=== PATIENT | female | born 1950 | race Caucasian/White ===

== ENCOUNTER 2024-08-14 12:00 | Inpatient (IN) | payer MEDICARE, MEDICAID, SELFPAY ==
--- NOTE | ~2024-08-14 | XR_ITS ---
EXAMINATION: XR CHEST CLINICAL INFORMATION: altered COMPARISON: None available. TECHNIQUE: 2 views of the chest were obtained. FINDINGS: Limited lateral projection due to overlapping of the upper extremities. Prominence of the interstitial markings. No consolidation, pleural effusion or pneumothorax. Cardiomediastinal silhouette demonstrates a prominent tortuous thoracic aorta. Multilevel thoracic spondylosis. Osteopenia versus osteoporosis. Degenerative changes in the shoulders. XR/XR chest 2V IMPRESSION: Consider mild interstitial edema in the correct clinical settings versus chronic interstitial lung disease. Electronically signed by: Hermann Sierra MD 08/14/2024 01:19 PM [facility]
--- NOTE | ~2024-08-14 | CT_ITS ---
EXAMINATION: CT HEAD WITHOUT CONTRAST CLINICAL INFORMATION: altered mental status COMPARISON: None available. TECHNIQUE: Contiguous axial imaging was performed from the skull base to vertex without intravenous administration of contrast. This CT examination was performed using dose optimization techniques as appropriate, variously including the following: *Automated exposure control *Adjustment of mA and/or kV according to patient size (this includes techniques or standardized protocols for targeted exams where dose is matched to indication/reason for exam; i.e. extremities or head) *Use of iterative reconstruction technique DLP: 599 mGy-cm FINDINGS: Limited by patient's motion artifact. No acute intracranial hemorrhage. Bilateral multifocal patchy and confluent deep periventricular white matter hypodensities involving centrum semiovale and adkins radiata. Prominence of the extra-axial CSF spaces, cerebral sulci and ventricles. No mass effect, midline shift, hydrocephalus or herniation. [place]-white matter differentiation is normal. Sellar/suprasellar region demonstrated no gross masses or hemorrhage. Craniocervical junction is intact and normal. Calcified plaques in the cavernous supraclinoid segments both ICAs and V4 segment left vertebral artery. Bony calvarium is intact. No air-fluid levels in the included paranasal sinuses. Tympanic cavities and mastoid air cells are aerated. Pneumatized pterygoid recesses, bilaterally. CT/CT head/brain wo IV con IMPRESSION: No acute intracranial hemorrhage. Small vessel occlusive disease. Superimposed acute nonhemorrhagic ischemia/stroke cannot be excluded. Global cerebral atrophy. Electronically signed by: Hermann Seirra MD 08/14/2024 03:10 PM [facility]
[2024-08-14 12:13] VITALS: BP 140/80; PULSE 70; RESP 18; O2SAT 100; BMI 18.6
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
--- NOTE | 2024-08-14 12:40 | ECG_ITS ---
Test Reason : ams Blood Pressure : / mmHG Vent. Rate : 061 BPM Atrial Rate : 072 BPM P-R Int : 000 ms QRS Dur : 086 ms QT Int : 444 ms P-R-T Axes : 000 001 033 degrees QTc Int : 446 ms Artifact in tracing Undetermined rhythm Minimal voltage criteria for LVH, may be normal variant ( R in aVL ) Nonspecific ST and T wave abnormality Abnormal ECG No previous ECGs available Referred By: Erlinda Alarcon Electronically Signed By:ZEUS LO
--- NOTE | 2024-08-14 13:36 | PC.NURSE ---
with lots of coaxing patient is cooperating with techs for workup. banded with elopment band
[2024-08-14 14:02] LABS: MANUAL DIFF FLAG NO
[2024-08-14 14:03] LABS: Basophils Percent Auto 0.6 % (0-2); Eosinophils Absolute Auto 0.2 X10*3/uL (0.0-0.4); Eosinophils Percent Auto 3.4 % (0-4); Hematocrit 33.4 % (37.0-47.0); Imm Gran Abs Auto 0.01 X10*3/uL (0.00-0.03); Imm Gran Pct Auto 0.2 % (0.0-0.4); Lymphocytes Absolute Auto 1.8 X10*3/uL (1.2-4.9); Lymphocytes Percent Auto 38.5 % (20-40); Mean Corpuscular HGB Conc 35.9 g/dl (31.0-35.0); Mean Corpuscular Hemoglobin 30.9 pg (27.0-33.0); Mean Corpuscular Volume 86.1 fL (80.0-98.0); Mean Platelet Volume 10.9 fL (9.4-12.3); Monocytes Absolute Auto 0.5 X10*3/uL (0.1-1.2); Monocytes Percent Auto 11.3 % (2-11); Neutrophils Absolute Auto 2.2 x10*3/uL (2.0-8.3); Platelet Count 176 X10*3/uL (160-400); Red Blood Count 3.88 X10*6/uL (4.20-5.50); Red Cell Distribution Width 13.8 % (11.0-16.0); White Blood Count 4.7 X10*3/uL (4.8-10.8)
[2024-08-14 14:17] LABS: Appearance Urine Clear; Color Urine Yellow; Glucose Urine UA Negative (Negative); Leukocyte Esterase Urine Negative (Negative); Nitrite Urine Negative (Negative); Specific Gravity - Urine 1.015 (1.005-1.025); Urine Blood Negative (Negative); Urine Ketones Negative (Negative); Urine Protein Negative (Neg-Trace)
[2024-08-14 14:18] LABS: Ammonia 21 umol/L (13-55)
[2024-08-14 14:28] LABS: Alanine Aminotransferase 17 U/L (0-31); Albumin Level 3.8 g/dL (3.5-5.0); Alkaline Phosphatase 83 U/L (39-117); Anion Gap 9 (12-20); Aspartate Amino Transferase 30 U/L (5-31); Bilirubin Total 0.7 mg/dL (0.0-1.0); Blood Urea Nitrogen 22 mg/dL (9-16); Calcium 9.4 mg/dL (8.4-10.2); Carbon Dioxide 27 mmol/L (22-29); Chloride 107 mmol/L (96-108); Creatinine Clr Calc Pharmacy 68.3; Estimated Glomerular Filt Rate > 60; Glucose Random 88 mg/dL (60-115); Lipase 21 U/L (8-78); Magnesium 1.9 mg/dL (1.6-2.6); Potassium 3.8 mmol/L (3.3-5.1); Sodium 139 mmol/L (135-145); Total Protein 6.9 g/dL (6.5-8.0)
[2024-08-14 14:31] LABS: Amphetamine Screen Urine Not Detected (Not Detect); Barbiturates, Urine Not Detected (Not Detect); Benzodiazepines Screen Urine Not Detected (Not Detect); Buprenorphine Scr Not Detected (Not Detect); Cannabinoid Screen Urine Not Detected (Not Detect); Cocaine Screen Urine Not Detected (Not Detect); Fentanyl, urine Not Detected (Not Detect); Methadone Screen, Urine Not Detected (Not Detect); Opiate Screen Urine Not Detected (Not Detect); Oxycodone Screen Urine Not Detected (Not Detect); Phencyclidine Screen Urine Not Detected (Not Detect)
[2024-08-14 14:33] VITALS: BP 138/89; PULSE 67; RESP 16; TEMP 36; O2SAT 100
[2024-08-14 14:42] LABS: Influenza A PCR NEGATIVE (Negative); Influenza B PCR NEGATIVE (Negative); Resp Syncy Virus RNA Qual PCR NEGATIVE (Negative); SARS COV2 PCR INHOUSE NEGATIVE (Negative)
[2024-08-14 14:52] LABS: TSH reflex Free T4 2.36 uIU/mL (0.32-4.0)
--- NOTE | 2024-08-14 15:29 | PC.NURSE ---
Pt resting quietly in [address] bed. Skin PWD. NAD.
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
[2024-08-14 16:21] LABS: Troponin-I High Sensitivity 3.6 ng/L (<3.5-17.0)
[2024-08-14 17:06] VITALS: BP 146/77; PULSE 71; RESP 18; TEMP 36.6; O2SAT 100
[2024-08-14 20:22] VITALS: BP 159/81; PULSE 68; RESP 18; TEMP 36.2; O2SAT 100
--- NOTE | 2024-08-14 21:14 | PC.NURSE ---
med rec done with med list provided by [facility]. Yaz RICH aware.
[2024-08-14] MEDS: Melatonin 3 MG TABLET PO (21:54)
[2024-08-14] MEDS: QUEtiapine Fumarate 50 MG TABLET 150 MG PO (21:54)
[2024-08-14] MEDS: hydrOXYzine HCL 25 MG TABLET PO (21:54)
[2024-08-14] MEDS: Apixaban 5 MG TABLET PO (21:54)
--- NOTE | 2024-08-14 22:19 | PHA.MEDREC ---
Pharmacy Consult ? Medication Reconciliation Pharmacy has reviewed the medication reconciliation done by nursing staff and also added in medications from the list from [facility].
[2024-08-14] MEDS: Doxycycline Monohydrate 100 MG CAPSULE PO (22:33)
[2024-08-14] MEDS: cefuroxime axetiL 500 MG TABLET PO (22:33)
[2024-08-14] MEDS: Divalproex Sodium Sprinkles 125 MG CAP.DR.SPR 625 MG PO (22:33)
--- NOTE | 2024-08-14 23:07 | PC.NURSE ---
pt brief removed, elyssa care provided, bed linen changed, warm blankets given and pt repositioned. skin intact. pt now resting comfortably in [address]. resp even and unlabored.
--- NOTE | 2024-08-15 00:20 | PC.NURSE ---
pt became agitated, trying to get out of bed. repositioned back to bed, attempt to give PRN however pt spit it back out. currently sleeping, resp even and unlabored.
[2024-08-15] MEDS: Divalproex Sodium Sprinkles 125 MG CAP.DR.SPR 625 MG PO (08:34)
[2024-08-15] MEDS: Losartan Potassium 50 MG TABLET PO (08:34)
[2024-08-15] MEDS: Folic Acid 1 MG TABLET PO (08:34)
[2024-08-15] MEDS: Omeprazole 20 MG CAPSULE.DR PO (08:34)
[2024-08-15] MEDS: QUEtiapine Fumarate 50 MG TABLET 150 MG PO ×2 (08:34→21:22)
[2024-08-15] MEDS: Doxycycline Monohydrate 100 MG CAPSULE PO ×2 (08:34→21:25)
[2024-08-15] MEDS: Calcium Oyster Shell Elemental 500 MG TABLET PO (08:35)
[2024-08-15] MEDS: Chlorhexidine Gluc Oral Rinse 15 ML MOUTHWASH BUCCAL ×2 (08:35→21:22)
[2024-08-15] MEDS: dilTIAZem HCL CD 120 MG CAP.ER.DEG PO (08:35)
[2024-08-15] MEDS: cefuroxime axetiL 500 MG TABLET PO ×2 (08:35→21:22)
[2024-08-15] MEDS: Apixaban 5 MG TABLET PO ×2 (08:35→21:22)
[2024-08-15] MEDS: hydrOXYzine HCL 25 MG TABLET PO (08:35)
[2024-08-15] MEDS: Thiamine HCL 100 MG TABLET PO (08:35)
--- NOTE | 2024-08-15 09:26 | P.CNPS_ITS ---
History of Present Illness Date of Service: 08/15/2024 Chief Complaint: SEC 12,INCR PSYCHOSIS FROM SNF PER EMS Requesting physician: Erlinda Alarcon Discussed with referring provider: Yes Sources of Information: patient interviewed, chart reviewed and crisis/core team assessment reviewed Additional Sources of Information: guardian Kaylen Diopr [phone] [facility] Narrative: Ms. Guan is a 74 year-old woman with hx of schizophrenia and dementia who resides at [facility]. She has been there for about 4 months. [place] to going there she [place] [facility] [place] [facility] and medical records are limited. [facility], reports that pt for the past 3 weeks appears more confused.Initial report also includes difficulty ambulating but also it was reported that she was chasing staff with plastic knife. In the ED, pt presents as somewhat anxious. She is not oriented to place, month, year, nor situation. She is not able to tell this internal communications writer where she lives. She thinks we are in [place] and she is waiting to go see her friend Chucky. She thinks she knows this internal communications writer and insists that I also know Sheila stating He is down the road. She does not appear as suspicious at this time. Her speech noted to have significant confabulation. She denies SI/HI. She also denies depression and has no recollection as to why she is here. She is not able to always tell this is a hospital setting. When asked about how long she has been here she states oh that's ancient history. She denies any physical concerns. Collateral information from guardian Kaylen Castillo who reports she is new to pt, and was given limited information on her. Kaylen does report that as far as she is aware pt has been oriented only to self for a very long time and not new. This internal communications writer also reviewed records from [facility] from earlier this month, pt also presented as oriented only to self. Diagnostics Vital Signs (24Hr): Vital Signs - 24 hr 08/14/24 12:13 08/14/24 14:33 08/14/24 17:06 Temperature 96.8 F 97.8 F Pulse Rate 70 67 71 Respiratory Rate 18 16 18 Blood Pressure 140/80 H 138/89 146/77 H Pulse Oximetry 100 100 100 Oxygen Delivery Method Room Air Room Air Room Air 08/14/24 20:22 Temperature 97.2 F Pulse Rate 68 Respiratory Rate 18 Blood Pressure 159/81 H Pulse Oximetry 100 Oxygen Delivery Method Room Air BMI result Body Mass Index 18.6 Labs 08/14/24 13:57 08/14/24 13:58 Labs: Laboratory Results - last 48 hr 08/14/24 08/14/24 08/14/24 13:57 13:58 14:01 WBC 4.7 L RBC 3.88 L Hgb 12.0 Hct 33.4 L MCV 86.1 MCH 30.9 MCHC 35.9 H RDW 13.8 Plt Count 176 MPV 10.9 Immature Gran % (Auto) 0.2 Neut % (Auto) 46.0 Lymph % (Auto) 38.5 Douglas % (Auto) 11.3 H Eos % (Auto) 3.4 Baso % (Auto) 0.6 Lymph # (Auto) 1.8 Douglas # (Auto) 0.5 Eos # (Auto) 0.2 Baso # (Auto) 0.0 Abs Immat Gran (auto) 0.01 Absolute Neuts (auto) 2.2 Absolute Nucleated RBC 0.000 Nucleated RBC % (auto) 0.0 Sodium 139 Potassium 3.8 Chloride 107 Carbon Dioxide 27 Anion Gap 9 L BUN 22 H Creatinine 0.56 Estim Creat Clear Calc 68.3 Estimated GFR > 60 Random Glucose 88 Calcium 9.4 Magnesium 1.9 Total Bilirubin 0.7 AST 30 ALT 17 Alkaline Phosphatase 83 Ammonia 21 Total Creatine Kinase 63 Troponin I High Sens 3.6 Total Protein 6.9 Albumin 3.8 Lipase 21 TSH 2.36 Urine Color Yellow Urine Appearance Clear Urine pH 6.0 Ur Specific [place] 1.015 Urine Protein Negative Urine Glucose (UA) Negative Urine Ketones Negative Urine Blood Negative Urine Nitrite Negative Ur Leukocyte Esterase Negative Urine Opiates Screen Not Detected Ur Buprenorphine Scrn Not Detected Ur Oxycodone Screen Not Detected Urine Methadone Screen Not Detected Urine Fentanyl Screen Not Detected Ur Barbiturates Screen Not Detected Valproic Acid Ur Phencyclidine Scrn Not Detected Ur Amphetamines Screen Not Detected U Benzodiazepines Scrn Not Detected Urine Cocaine Screen Not Detected U Marijuana (THC) Screen Not Detected Influenza Type A (PCR) NEGATIVE Influenza Type B (PCR) NEGATIVE RSV RNA Qual (PCR) NEGATIVE SARS-CoV-2 RNA (RT-PCR) NEGATIVE 08/14/24 16:40 WBC RBC Hgb Hct MCV MCH MCHC RDW Plt Count MPV Immature Gran % (Auto) Neut % (Auto) Lymph % (Auto) Douglas % (Auto) Eos % (Auto) Baso % (Auto) Lymph # (Auto) Douglas # (Auto) Eos # (Auto) Baso # (Auto) Abs Immat Gran (auto) Absolute Neuts (auto) Absolute Nucleated RBC Nucleated RBC % (auto) Sodium Potassium Chloride Carbon Dioxide Anion Gap BUN Creatinine Estim Creat Clear Calc Estimated GFR Random Glucose Calcium Magnesium Total Bilirubin AST ALT Alkaline Phosphatase Ammonia Total Creatine Kinase Troponin I High Sens Total Protein Albumin Lipase TSH Urine Color Urine Appearance Urine pH Ur Specific [place] Urine Protein Urine Glucose (UA) Urine Ketones Urine Blood Urine Nitrite Ur Leukocyte Esterase Urine Opiates Screen Ur Buprenorphine Scrn Ur Oxycodone Screen Urine Methadone Screen Urine Fentanyl Screen Ur Barbiturates Screen Valproic Acid 80.0 Ur Phencyclidine Scrn Ur Amphetamines Screen U Benzodiazepines Scrn Urine Cocaine Screen U Marijuana (THC) Screen Influenza Type A (PCR) Influenza Type B (PCR) RSV RNA Qual (PCR) SARS-CoV-2 RNA (RT-PCR) Imaging Radiology Impressions: ITS Impressions Chest X-Ray 08/14/24 12:39 IMPRESSION: Consider mild interstitial edema in the correct clinical settings versus chronic interstitial lung disease. Electronically signed by: Hermann Sierra MD 08/14/2024 01:19 PM EST RP Head CT 08/14/24 13:04 IMPRESSION: No acute intracranial hemorrhage. Small vessel occlusive disease. Superimposed acute nonhemorrhagic ischemia/stroke cannot be excluded. Global cerebral atrophy. Electronically signed by: Hermann Sierra MD 08/14/2024 03:10 PM EST RP Mental Status Exam Mental Status Exam Narrative: Appearance: thin, fair hygiene, in NAD Behavior: cooperative Psychomotor: no agitation nor retardation noted Speech: clear, normal rate/rhythm/volume, spontaneous TP: derailment, confabulation TC: looking for Sheila Mood: good Affect: congruent SI: denies HI: denies VH/AH: no overt signs at the moment, but confabulation present Delusions: no overt delusional content but confabulating Insight/judgment: impaired x 2 . Memory/cog: alert, not oriented to place, year, month, nor situation. severely impaired. Medications Medications Current Medications Apixaban (Apixaban 5 Mg Tablet) 5 mg PO BID [facility] Last Admin: 08/15/24 08:35 Dose: 5 mg Bisacodyl (Bisacodyl 10 Mg Supp.Rect) 10 mg MD DAILY PRN PRN Reason: Constipation Calcium Carbonate (Calcium Oyster Shell Elemental 500 Mg Tablet) 500 mg PO DAILY [facility] Last Admin: 08/15/24 08:35 Dose: 500 mg Cefuroxime Axetil (Cefuroxime Axetil 500 Mg Tablet) 500 mg PO BID [facility] Last Admin: 08/15/24 08:35 Dose: 500 mg Chlorhexidine Gluconate (Chlorhexidine Gluc Oral Rinse 15 Ml Mouthwash) 15 ml BUCCAL BID [facility] Last Admin: 08/15/24 08:35 Dose: 15 ml Diltiazem HCl (Diltiazem Hcl Cd 120 Mg Cap.Er.Deg) 120 mg PO DAILY [facility]; Protocol Last Admin: 08/15/24 08:35 Dose: 120 mg Divalproex Sodium (Divalproex Sodium Sprinkles 125 Mg Cap.Dr.Spr) 625 mg PO BID [facility] Last Admin: 08/15/24 08:34 Dose: 625 mg Doxycycline Monohydrate (Doxycycline Monohydrate 100 Mg Capsule) 100 mg PO BID [facility] Last Admin: 08/15/24 08:34 Dose: 100 mg Ergocalciferol (Ergocalciferol (Vitamin D2) 1,250 Mcg Capsule) 1,250 mcg PO TH [facility] Folic Acid (Folic Acid 1 Mg Tablet) 1 mg PO DAILY [facility] Last Admin: 08/15/24 08:34 Dose: 1 mg Hydroxyzine HCl (Hydroxyzine Hcl 25 Mg Tablet) 25 mg PO TID [facility] Last Admin: 08/15/24 08:35 Dose: 25 mg Losartan Potassium (Losartan Potassium 50 Mg Tablet) 50 mg PO DAILY [facility]; Protocol Last Admin: 08/15/24 08:34 Dose: 50 mg Magnesium Hydroxide (Milk Of Magnesia 30 Ml Oral.Susp) 30 ml PO DAILY PRN PRN Reason: Constipation Melatonin (Melatonin 3 Mg Tablet) 3 mg PO BEDTIME [facility] Last Admin: 08/14/24 21:54 Dose: 3 mg Omeprazole (Omeprazole 20 Mg Capsule.Dr) 20 mg PO DAILY [facility] Last Admin: 08/15/24 08:34 Dose: 20 mg Ondansetron HCl (Ondansetron Odt 4 Mg Tab.Rapdis) 4 mg TRANSLINGU Q6H PRN PRN Reason: Nausea Quetiapine Fumarate (Quetiapine Fumarate 25 Mg Tablet) 25 mg PO Q8H PRN PRN Reason: Agitation Quetiapine Fumarate (Quetiapine Fumarate 50 Mg Tablet) 150 mg PO BID [facility] Last Admin: 08/15/24 08:34 Dose: 150 mg Sodium Biphosphate/Sodium Phosphate (Sodium Phosphate,Douglas-Dibasic 133 Ml Enema) 118 ml MD DAILY PRN PRN Reason: Constipation Thiamine HCl (Thiamine Hcl 100 Mg Tablet) 100 mg PO DAILY [facility] Last Admin: 08/15/24 08:35 Dose: 100 mg Allergies Allergies Allergy/AdvReac Type Severity Reaction Status Date / Time cat dander Allergy Unknown Verified 08/14/24 12:19 erythromycin base Allergy Unknown Verified 08/14/24 12:19 Penicillins Allergy Unknown Verified 08/14/24 12:19 pollen extracts Allergy Unknown Verified 08/14/24 12:19 prednisone Allergy Unknown Verified 08/14/24 12:19 vancomycin Allergy Unknown Verified 08/14/24 12:19 Assessment & Plan Assessment & Plan (1) Major 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 Cruz is a 74 year-old woman who was brought from [facility] after running after staff with plastic knife and increased confusion for apparently 3 weeks. It does appear that pt has been oriented mostly to self for longer than 3 weeks. Initially thought of a more acute change in mentation and possible delirium, but it does seem this may be underlying dementia. It does seem to be of alzheimer's type. She has not been combative or aggressive here in the hospital. She apparently has hx of schizophrenia and multiple psych admission throughout her life but information on here is very limited as current caregivers including guardian does not know her well and was not given much information on her. Guardian did mention that she had been at [facility] several times, eventually it would be very helpful to get their medical records. Discussed adding risperidone 1mg po BID- if in fact underlying psychosis, either related to dementia or primarily psychotic disorder, risperidone may be more effective than seroquel alone. Unclear how long she has been on depakote and does not appear to be as helpful. She will also benefit from medication such as namenda for more behavioral aspects related to dementia, which again seems to be related to AD- and advanced at this point. PLAN 1. will keep overnight for observation, but if no combative behaviors will discharge back to [facility] to continue OP tx. Total time managing care of this patient today ____ minutes.
[2024-08-15 10:20] VITALS: BP 100/73; PULSE 68; RESP 16; O2SAT 100
[2024-08-15 13:13] VITALS: BP 153/71; PULSE 64; RESP 18; TEMP 36.8; O2SAT 97
[2024-08-15] MEDS: QUEtiapine Fumarate 50 MG TABLET PO (16:33)
[2024-08-15 18:31] VITALS: BP 158/68; PULSE 66; RESP 16; TEMP 36.6; O2SAT 99
--- NOTE | 2024-08-15 19:18 | PC.NURSE ---
pt attempting to get out of bed without assist. pt educated to call for help with call colvin prior to getting OOB. call colvin in reach, pt forgetful. camera placed in room and registered with T
--- NOTE | 2024-08-15 20:23 | MHC.EDTECH ---
Assumed care of Pt at 1900.
[2024-08-15] MEDS: Memantine HCl 5 MG TABLET PO (21:22)
[2024-08-15] MEDS: Melatonin 3 MG TABLET PO (21:22)
[2024-08-15] MEDS: risperiDONE 1 MG TABLET PO (21:22)
[2024-08-15] MEDS: Acetaminophen 325 MG TABLET 650 MG PO (22:21)
[2024-08-16] VITALS (8 sets, daily range): BP systolic 123–172; BP diastolic 72–97; PULSE 60–85; RESP 16–19; TEMP 36.8–36.9; O2SAT 91–100
[2024-08-16] MEDS: QUEtiapine Fumarate 50 MG TABLET PO (00:52)
--- NOTE | 2024-08-16 04:18 | MHC.EDTECH ---
Late entry- @ 0300 Pt moved to hospital bed for comfort. Repositioned, warmm blankets given and callbell within reach. Bed alarm on.
--- NOTE | 2024-08-16 06:05 | PC.NURSE ---
Pt alert and confused, multiple attempts to get out of bed made throughout he night, easily redirected to the bedside. Video camera in place, bed alarm active. Call colvin placed within reach. Urine incontinent, self removed purewick. All needs met. At 0600 pt found to be standing out of bed by staff nuclear medicine technologist. Video camera did not alert staff. altitude chamber technician attempted to redirect pt back to bed when pt became agitated and scratched the tech. Multiple attempts needed to return pt to the bedside. made aware. New orders placed in OCT. Monitoring is ongoing.
--- NOTE | 2024-08-16 06:13 | MHC.EDTECH ---
Pt agitated and trying to get out of bed, kicking and scratching staff. No vitals done at this time due to this.
[2024-08-16] MEDS: Chlorhexidine Gluc Oral Rinse 15 ML MOUTHWASH BUCCAL ×2 (08:24→20:58)
[2024-08-16] MEDS: Omeprazole 20 MG CAPSULE.DR PO (08:24)
[2024-08-16] MEDS: Doxycycline Monohydrate 100 MG CAPSULE PO ×2 (08:24→20:55)
[2024-08-16] MEDS: Thiamine HCL 100 MG TABLET PO (08:24)
[2024-08-16] MEDS: cefuroxime axetiL 500 MG TABLET PO ×2 (08:25→20:55)
[2024-08-16] MEDS: Apixaban 5 MG TABLET PO ×2 (08:25→20:55)
[2024-08-16] MEDS: Memantine HCl 5 MG TABLET PO ×2 (08:25→20:55)
[2024-08-16] MEDS: Folic Acid 1 MG TABLET PO (08:25)
[2024-08-16] MEDS: dilTIAZem HCL CD 120 MG CAP.ER.DEG PO (08:25)
[2024-08-16] MEDS: Losartan Potassium 50 MG TABLET PO (08:26)
[2024-08-16] MEDS: QUEtiapine Fumarate 50 MG TABLET 150 MG PO ×2 (08:26→20:55)
[2024-08-16] MEDS: Calcium Oyster Shell Elemental 500 MG TABLET PO (08:27)
[2024-08-16] MEDS: risperiDONE 1 MG TABLET PO ×3 (08:33→20:56)
--- NOTE | 2024-08-16 13:17 | PM.PSYCN ---
History of Present Illness Date of Service: 08/16/2024 Chief Complaint: SEC 12,INCR PSYCHOSIS FROM SNF PER EMS Discussed with referring provider: Yes Sources of Information: patient interviewed, chart reviewed and crisis/core team assessment reviewed HPI Narrative: Interim Hx: pt more agitated and combative with staff. difficult to redirect. Pt with severe anterograde amnesia, not able to recall anything that happen in past hour. Not oriented to place, situation, month or year. She states she is going to store to get some beauty toys. NO SI/HI. combative behaviors seem to be in context of impaired orientation. Diagnostics Vital Signs (24Hr): Vital Signs - 24 hr 08/15/24 18:31 08/16/24 00:51 08/16/24 07:41 Temperature 97.9 F 98.3 F Pulse Rate 66 60 85 Respiratory Rate 16 18 16 Blood Pressure 158/68 H 148/76 H 172/97 H Pulse Oximetry 99 100 99 Oxygen Delivery Method Room Air Room Air 08/16/24 08:25 08/16/24 08:26 08/16/24 13:01 Temperature Pulse Rate 85 69 Respiratory Rate 19 Blood Pressure 172/97 H 172/97 H 140/76 H Pulse Oximetry 91 L Oxygen Delivery Method Room Air BMI result Body Mass Index 18.6 Labs 08/14/24 13:57 08/14/24 13:58 Labs: Laboratory Results - last 48 hr 08/14/24 08/14/24 08/14/24 13:57 13:58 14:01 WBC 4.7 L RBC 3.88 L Hgb 12.0 Hct 33.4 L MCV 86.1 MCH 30.9 MCHC 35.9 H RDW 13.8 Plt Count 176 MPV 10.9 Immature Gran % (Auto) 0.2 Neut % (Auto) 46.0 Lymph % (Auto) 38.5 [place] % (Auto) 11.3 H Eos % (Auto) 3.4 Baso % (Auto) 0.6 Lymph # (Auto) 1.8 [place] # (Auto) 0.5 Eos # (Auto) 0.2 Baso # (Auto) 0.0 Abs Immat Gran (auto) 0.01 Absolute Neuts (auto) 2.2 Absolute Nucleated RBC 0.000 Nucleated RBC % (auto) 0.0 Sodium 139 Potassium 3.8 Chloride 107 Carbon Dioxide 27 Anion Gap 9 L BUN 22 H Creatinine 0.56 Estim Creat Clear Calc 68.3 Estimated GFR > 60 Random Glucose 88 Calcium 9.4 Magnesium 1.9 Total Bilirubin 0.7 AST 30 ALT 17 Alkaline Phosphatase 83 Ammonia 21 Total Creatine Kinase 63 Troponin I High Sens 3.6 Total Protein 6.9 Albumin 3.8 Lipase 21 TSH 2.36 Urine Color Yellow Urine Appearance Clear Urine pH 6.0 Ur Specific [place] 1.015 Urine Protein Negative Urine Glucose (UA) Negative Urine Ketones Negative Urine Blood Negative Urine Nitrite Negative Ur Leukocyte Esterase Negative Urine Opiates Screen Not Detected Ur Buprenorphine Scrn Not Detected Ur Oxycodone Screen Not Detected Urine Methadone Screen Not Detected Urine Fentanyl Screen Not Detected Ur Barbiturates Screen Not Detected Valproic Acid Ur Phencyclidine Scrn Not Detected Ur Amphetamines Screen Not Detected U Benzodiazepines Scrn Not Detected Urine Cocaine Screen Not Detected U Marijuana (THC) Screen Not Detected Influenza Type A (PCR) NEGATIVE Influenza Type B (PCR) NEGATIVE RSV RNA Qual (PCR) NEGATIVE SARS-CoV-2 RNA (RT-PCR) NEGATIVE 08/14/24 16:40 WBC RBC Hgb Hct MCV MCH MCHC RDW Plt Count MPV Immature Gran % (Auto) Neut % (Auto) Lymph % (Auto) [place] % (Auto) Eos % (Auto) Baso % (Auto) Lymph # (Auto) [place] # (Auto) Eos # (Auto) Baso # (Auto) Abs Immat Gran (auto) Absolute Neuts (auto) Absolute Nucleated RBC Nucleated RBC % (auto) Sodium Potassium Chloride Carbon Dioxide Anion Gap BUN Creatinine Estim Creat Clear Calc Estimated GFR Random Glucose Calcium Magnesium Total Bilirubin AST ALT Alkaline Phosphatase Ammonia Total Creatine Kinase Troponin I High Sens Total Protein Albumin Lipase TSH Urine Color Urine Appearance Urine pH Ur Specific [place] Urine Protein Urine Glucose (UA) Urine Ketones Urine Blood Urine Nitrite Ur Leukocyte Esterase Urine Opiates Screen Ur Buprenorphine Scrn Ur Oxycodone Screen Urine Methadone Screen Urine Fentanyl Screen Ur Barbiturates Screen Valproic Acid 80.0 Ur Phencyclidine Scrn Ur Amphetamines Screen U Benzodiazepines Scrn Urine Cocaine Screen U Marijuana (THC) Screen Influenza Type A (PCR) Influenza Type B (PCR) RSV RNA Qual (PCR) SARS-CoV-2 RNA (RT-PCR) Imaging Radiology Impressions: ITS Impressions Chest X-Ray 08/14/24 12:39 IMPRESSION: Consider mild interstitial edema in the correct clinical settings versus chronic interstitial lung disease. Electronically signed by: Hermann Sierra MD 08/14/2024 01:19 PM EST RP Head CT 08/14/24 13:04 IMPRESSION: No acute intracranial hemorrhage. Small vessel occlusive disease. Superimposed acute nonhemorrhagic ischemia/stroke cannot be excluded. Global cerebral atrophy. Electronically signed by: Hermann Sierra MD 08/14/2024 03:10 PM EST RP Mental Status Exam Mental Status Exam Narrative: Appearance: thin, fair hygiene, in NAD Behavior: cooperative Psychomotor: no agitation nor retardation noted Speech: clear, normal rate/rhythm/volume, spontaneous TP: derailment, confabulation TC: looking for Sheila Mood: good Affect: congruent SI: denies HI: denies VH/AH: no overt signs at the moment, but confabulation present Delusions: no overt delusional content but confabulating Insight/judgment: impaired x 2 . Memory/cog: alert, not oriented to place, year, month, nor situation. severely impaired. Medications Medications Current Medications Apixaban (Apixaban 5 Mg Tablet) 5 mg PO BID [facility] Last Admin: 08/16/24 08:25 Dose: 5 mg Bisacodyl (Bisacodyl 10 Mg Supp.Rect) 10 mg GA DAILY PRN PRN Reason: Constipation Calcium Carbonate (Calcium Oyster Shell Elemental 500 Mg Tablet) 500 mg PO DAILY [facility] Last Admin: 08/16/24 08:27 Dose: 500 mg Cefuroxime Axetil (Cefuroxime Axetil 500 Mg Tablet) 500 mg PO BID [facility] Last Admin: 08/16/24 08:25 Dose: 500 mg Chlorhexidine Gluconate (Chlorhexidine Gluc Oral Rinse 15 Ml Mouthwash) 15 ml BUCCAL BID [facility] Last Admin: 08/16/24 08:24 Dose: 15 ml Diltiazem HCl (Diltiazem Hcl Cd 120 Mg Cap.Er.Deg) 120 mg PO DAILY [facility]; Protocol Last Admin: 08/16/24 08:25 Dose: 120 mg Doxycycline Monohydrate (Doxycycline Monohydrate 100 Mg Capsule) 100 mg PO BID [facility] Last Admin: 08/16/24 08:24 Dose: 100 mg Ergocalciferol (Ergocalciferol (Vitamin D2) 1,250 Mcg Capsule) 1,250 mcg PO TH [facility] Last Admin: 08/16/24 09:07 Dose: Not Given Folic Acid (Folic Acid 1 Mg Tablet) 1 mg PO DAILY [facility] Last Admin: 08/16/24 08:25 Dose: 1 mg Losartan Potassium (Losartan Potassium 50 Mg Tablet) 50 mg PO DAILY [facility]; Protocol Last Admin: 08/16/24 08:26 Dose: 50 mg Magnesium Hydroxide (Milk Of Magnesia 30 Ml Oral.Susp) 30 ml PO DAILY PRN PRN Reason: Constipation Melatonin (Melatonin 3 Mg Tablet) 3 mg PO BEDTIME [facility] Last Admin: 08/15/24 21:22 Dose: 3 mg Memantine (Memantine Hcl 5 Mg Tablet) 5 mg PO BID [facility] Last Admin: 08/16/24 08:25 Dose: 5 mg Omeprazole (Omeprazole 20 Mg Capsule.Dr) 20 mg PO DAILY [facility] Last Admin: 08/16/24 08:24 Dose: 20 mg Ondansetron HCl (Ondansetron Odt 4 Mg Tab.Rapdis) 4 mg TRANSLINGU Q6H PRN PRN Reason: Nausea Quetiapine Fumarate (Quetiapine Fumarate 50 Mg Tablet) 150 mg PO BID [facility] Last Admin: 08/16/24 08:26 Dose: 150 mg Quetiapine Fumarate (Quetiapine Fumarate 50 Mg Tablet) 50 mg PO Q8H PRN PRN Reason: Agitation Last Admin: 08/16/24 00:52 Dose: 50 mg Risperidone (Risperidone 1 Mg Tablet) 1 mg PO TID [facility] Sodium Biphosphate/Sodium Phosphate (Sodium Phosphate,[place]-Dibasic 133 Ml Enema) 118 ml GA DAILY PRN PRN Reason: Constipation Thiamine HCl (Thiamine Hcl 100 Mg Tablet) 100 mg PO DAILY [facility] Last Admin: 08/16/24 08:24 Dose: 100 mg Allergies Allergies Allergy/AdvReac Type Severity Reaction Status Date / Time cat dander Allergy Unknown Verified 08/14/24 12:19 erythromycin base Allergy Unknown Verified 08/14/24 12:19 Penicillins Allergy Unknown Verified 08/14/24 12:19 pollen extracts Allergy Unknown Verified 08/14/24 12:19 prednisone Allergy Unknown Verified 08/14/24 12:19 vancomycin Allergy Unknown Verified 08/14/24 12:19 Assessment & Plan Assessment & Plan (1) Major 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 Cruz is a 74 year-old woman who was brought from [facility] after running after staff with plastic knife and increased confusion for apparently 3 weeks. It does appear that pt has been oriented mostly to self for longer than 3 weeks. Initially thought of a more acute change in mentation and possible delirium, but it does seem this may be underlying dementia. It does seem to be of alzheimer's type. She has not been combative or aggressive here in the hospital. She apparently has hx of schizophrenia and multiple psych admission throughout her life but information on here is very limited as current caregivers including guardian does not know her well and was not given much information on her. Guardian did mention that she had been at [facility] several times, eventually it would be very helpful to get their medical records. Discussed adding risperidone 1mg po BID- if in fact underlying psychosis, either related to dementia or primarily psychotic disorder, risperidone may be more effective than seroquel alone. Unclear how long she has been on depakote and does not appear to be as helpful. She will also benefit from medication such as namenda for more behavioral aspects related to dementia, which again seems to be related to AD- and advanced at this point. 08/16- some agitation and combative behaviors this morning. I recommend at this point ILOC for stabilization, safety and containment. pt bed search for [facility]. most of behaviors seem to be related to dementia rather than primarily psych illness at this point. Will increase risperidone 1mg po TID. Gave one time dose of amlodipine 5mg po as SBP 170's. Total time managing care of this patient today ____ minutes.
[2024-08-16] MEDS: amLODIPine Besylate 5 MG TABLET PO (13:36)
[2024-08-16] MEDS: Melatonin 3 MG TABLET PO (20:55)
[2024-08-16] MEDS: LORazepam 2 MG/ML VIAL 1 MG IM (23:29)
--- NOTE | 2024-08-16 23:30 | PC.NURSE ---
Pt attempting to kick staff and jump out of bed continuously. Attempts to deescalate verbally unsuccessful. Pt unwilling to take any PO medication.physician notified, medicated.
[2024-08-17 05:59] VITALS: BP 154/77; PULSE 60; RESP 16; TEMP 36.4; O2SAT 98
--- NOTE | 2024-08-17 06:25 | MHC.EDTECH ---
Patient was awake all night long ,trying to climb out of bed striking at staff ,1 :1 sitter at bed side ,vitals taken ,Patient drank 240 ml water and ate ice cream .
--- NOTE | 2024-08-17 06:36 | MHC.EDTECH ---
Patient was incontinent of urine ,care given and bedding change .
[2024-08-17] MEDS: Chlorhexidine Gluc Oral Rinse 15 ML MOUTHWASH BUCCAL (08:59)
[2024-08-17] MEDS: cefuroxime axetiL 500 MG TABLET PO ×2 (08:59→21:12)
[2024-08-17] MEDS: Calcium Oyster Shell Elemental 500 MG TABLET PO (08:59)
[2024-08-17] MEDS: dilTIAZem HCL CD 120 MG CAP.ER.DEG PO (08:59)
[2024-08-17] MEDS: QUEtiapine Fumarate 50 MG TABLET 150 MG PO (08:59)
[2024-08-17] MEDS: Apixaban 5 MG TABLET PO ×2 (08:59→21:13)
[2024-08-17] MEDS: Losartan Potassium 50 MG TABLET PO (08:59)
[2024-08-17] MEDS: Folic Acid 1 MG TABLET PO (08:59)
[2024-08-17] MEDS: Doxycycline Monohydrate 100 MG CAPSULE PO ×2 (08:59→21:14)
[2024-08-17] MEDS: Omeprazole 20 MG CAPSULE.DR PO (09:00)
[2024-08-17] MEDS: risperiDONE 1 MG TABLET PO (09:00)
[2024-08-17] MEDS: Memantine HCl 5 MG TABLET PO ×2 (09:00→21:13)
[2024-08-17] MEDS: Thiamine HCL 100 MG TABLET PO (09:00)
[2024-08-17 15:23] VITALS: BP 155/86; PULSE 78; RESP 16; TEMP 36.5; O2SAT 99
--- NOTE | 2024-08-17 15:40 | P.HPPS_ITS ---
HPI Date of Service: 08/17/24 Chief Complaint: combative Sources of Information: patient interviewed, chart reviewed and crisis/core team assessment reviewed HPI Subjective Notes: Section 12B Narrative: Ms. Guan is a 74 year-old woman with hx of schizophrenia and dementia who resides at [facility]. She has been there for about 4 months. Prior to going there [facility] [place] [facility] and [facility]. [facility] reports that pt for the past 3 weeks appears more confused.Initial report also includes difficulty ambulating but also it was reported that she was chasing staff with plastic knife. In the ED, pt presented as somewhat anxious. She is not oriented to place, month, year, nor situation. She is not able to tell this service writer advisor where she lives. She thinks we are in [place] and she is waiting to go see her friend Chucky. She thinks she knows this service writer advisor and insists that I also know Sheila stating He is down the road. She does not appear as suspicious at this time. Her speech noted to have significant confabulation. She denies SI/HI. She also denies depression and has no recollection as to why she is here. She is not able to always tell this is a hospital setting. When asked about how long she has been here she states oh that's ancient history. She denies any physical concerns. Collateral information from guardian Kaylen Castillo who reports she is new to pt, and was given limited information on her. Kaylen does report that as far as she is aware pt has been oriented only to self for a very long time and not new. This service writer advisor also reviewed records from [facility] from earlier this month, pt also presented as oriented only to self. On the unit, pt presents as calm with a constricted affect. Noted increased rigidity which may be related to antipsychotic risperidone started while in the ED. She continues to present as not oriented to place, month, year nor situation. Not able to provide much information. While in the ED, pt had episodes of combative behaviors requiring IM medication. Medical Evaluation Reviewed: Yes Diagnostics Vital Signs (24Hr): Vital Signs - 24 hr 08/16/24 16:24 08/16/24 20:48 08/17/24 05:59 Temperature 98.4 F 98.2 F 97.5 F Pulse Rate 78 62 60 Respiratory Rate 16 16 16 Blood Pressure 134/72 123/72 154/77 H Pulse Oximetry 97 97 98 Oxygen Delivery Method Room Air Room Air Room Air 08/17/24 15:23 Temperature 97.7 F Pulse Rate 78 Respiratory Rate 16 Blood Pressure 155/86 H Pulse Oximetry 99 Oxygen Delivery Method Room Air BMI result Body Mass Index 18.6 Labs 08/14/24 13:57 08/14/24 13:58 Imaging Radiology Impressions: ITS Impressions Chest X-Ray 08/14/24 12:39 IMPRESSION: Consider mild interstitial edema in the correct clinical settings versus chronic interstitial lung disease. Electronically signed by: Hermann Sierra MD 08/14/2024 01:19 PM EST RP Head CT 08/14/24 13:04 IMPRESSION: No acute intracranial hemorrhage. Small vessel occlusive disease. Superimposed acute nonhemorrhagic ischemia/stroke cannot be excluded. Global cerebral atrophy. Electronically signed by: Hermann Sierra MD 08/14/2024 03:10 PM EST RP Meds/Allergies Meds Home Medications ?Medication ?Instructions ?Recorded ?Confirmed ?Type acetaminophen 325 mg tablet 650 mg PO Q6H PRN Pain 08/14/24 08/14/24 History acidophilus 100 million 1 cap PO BID 08/14/24 08/14/24 History cell-pectin, citrus 10 mg capsule apixaban 5 mg tablet (Eliquis) 5 mg PO BID 08/14/24 08/14/24 History bisacodyl 10 mg rectal suppository 10 mg IA DAILY PRN Constipation 08/14/24 08/14/24 History calcium carbonate 500 mg PO DAILY 08/14/24 08/14/24 History cefpodoxime 200 mg tablet 200 mg PO BID 08/14/24 08/14/24 History chlorhexidine gluconate 0.12 % 15 ml buccal BID 08/14/24 08/14/24 History mouthwash diltiazem HCl 120 mg capsule,24 120 mg PO BID 08/14/24 08/14/24 History hr,extended release divalproex 125 mg tablet,delayed 625 mg PO BID 08/14/24 08/14/24 History release doxycycline hyclate 100 mg capsule 100 mg PO BID 08/14/24 08/14/24 History ergocalciferol (vitamin D2) 1,250 1,250 mcg PO TH 08/14/24 08/14/24 History mcg (50,000 unit) capsule folic acid 1 mg tablet 1 mg PO DAILY 08/14/24 08/14/24 History hydroxyzine HCl 25 mg tablet 25 mg PO TID 08/14/24 08/14/24 History losartan 50 mg tablet 50 mg PO DAILY 08/14/24 08/14/24 History magnesium hydroxide 400 mg/5 mL 30 ml PO DAILY PRN Constipation 08/14/24 08/14/24 History oral suspension (Milk of Magnesia) melatonin 1 mg tablet 3 mg PO BEDTIME 08/14/24 08/14/24 History menthol 2.5 % topical gel 1 appl topical BID 08/14/24 08/14/24 History ondansetron HCl 4 mg tablet 4 mg PO Q6H PRN Nausea 08/14/24 08/14/24 History pantoprazole 40 mg tablet,delayed 40 mg PO DAILY 08/14/24 08/14/24 History release quetiapine 25 mg tablet 25 mg PO Q8H PRN Agitation 08/14/24 08/14/24 History quetiapine 50 mg tablet 150 mg PO BID 08/14/24 08/14/24 History sodium phosphates 19 gram-7 118 ml IA DAILY PRN Constipation 08/14/24 08/14/24 History gram/118 mL enema (Fleet Enema) thiamine HCl (vitamin B1) 100 mg 100 mg PO DAILY 08/14/24 08/14/24 History tablet Allergies Allergies Allergy/AdvReac Type Severity Reaction Status Date / Time cat dander Allergy Unknown Verified 08/14/24 12:19 erythromycin base Allergy Unknown Verified 08/14/24 12:19 Penicillins Allergy Unknown Verified 08/14/24 12:19 pollen extracts Allergy Unknown Verified 08/14/24 12:19 prednisone Allergy Unknown Verified 08/14/24 12:19 vancomycin Allergy Unknown Verified 08/14/24 12:19 Mental Status Exam Mental Status Exam Narrative: Appearance: thin, fair hygiene, in NAD Behavior: cooperative Psychomotor: some rigidity noted, no cogwheel Speech: less spontaneous speech, single words TP: derailment, confabulation TC: not Mood: good Affect: constricted SI: denies HI: denies VH/AH: no overt signs at the moment, but confabulation present Delusions: no overt delusional content but confabulating Insight/judgment: impaired x 2 . Memory/cog: alert, not oriented to place, year, month, nor situation. severely impaired. 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 Cruz is a 74 year-old woman who was brought from [facility] after running after staff with plastic knife and increased confusion for apparently 3 weeks. It does appear that pt has been oriented mostly to self for longer than 3 weeks. Initially thought of a more acute change in mentation and possible delirium, but it does seem this may be underlying dementia. It does seem to be of alzheimer's type. She has not been combative or aggressive here in the hospital. She apparently has hx of schizophrenia and multiple psych admission throughout her life but information on here is very limited as current caregivers including guardian does not know her well and was not given much information on her. Guardian did mention that she had been at [facility] several times, eventually it would be very helpful to get their medical records. Discussed adding risperidone 1mg po BID- if in fact underlying psychosis, either related to dementia or primarily psychotic disorder, risperidone may be more effective than seroquel alone. Unclear how long she has been on depakote and does not appear to be as helpful. She will also benefit from medication such as namenda for more behavioral aspects related to dementia, which again seems to be related to AD- and advanced at this point. PLAN 1. Admit to S1, sect 12b, 5min checks. 2. decreased risperidone to 1mg po BID, add cogentin 0.5mg po BID. will dc at this point seroquel 150mg po BID. 3. obtain records from [facility] 4. coordinate aftercare. Patient educated on: diagnosis (guardian as pt does not show understanding) and medication risk/benefits Reason for continued inpatient stay Substantial Risk for: harm to others and inability to function Statement Statement: I have reviewed the history and physical and performed a pertinent examination on my patient. No changes have occurred unless specified. If the History and Physical was not performed prior to admission, the Hospitalist's service will be consulted for completing the admission physical. Time Spent With Patient Time: Total time managing care of this patient today ____ minutes.
[2024-08-17] MEDS: Benztropine Mesylate 1 MG TABLET PO (16:18)
--- NOTE | 2024-08-17 18:59 | PC.ADMIT ---
Pt. arrived on unit at 15:07 via WC accompanied by this RN and security. She was disoriented in all spheres, unable to even state her name. Pt. has resided at [facility], where she had become increasingly confused and aggressive over the past several weeks. Very little is known of pt. history and she has a guardian that has only recently been assigned. Changeover with skin assmt. and contraband search conducted with no significant findings. Pt. unable to participate in admission process due to her mental status. Seen by OT, who confirmed she is WC level with assist of 2 for transfers at this time. Pt. noted to speak nonsensically and sing in heavily accented Mauritian at times, and in nonsensical [place] at other times. Provider decreased Risperidone and ordered one time dose of Cogentin, which she accepted crushed in a bite of ice cream. Pt. was unable to feed herself at beginning of dinner meal, but began to self feed as cogentin took effect. Pt. with bright affect, pleasantly interacting with staff.
[2024-08-17 19:11] LABS: Alanine Aminotransferase 18 U/L (0-31); Albumin Level 3.6 g/dL (3.5-5.0); Alkaline Phosphatase 91 U/L (39-117); Anion Gap 11 (12-20); Aspartate Amino Transferase 30 U/L (5-31); Bilirubin Total 0.5 mg/dL (0.0-1.0); Blood Urea Nitrogen 12 mg/dL (9-16); Calcium 9.1 mg/dL (8.4-10.2); Carbon Dioxide 23 mmol/L (22-29); Chloride 108 mmol/L (96-108); Estimated Glomerular Filt Rate > 60; Glucose Random 138 mg/dL (60-115); Potassium 3.6 mmol/L (3.3-5.1); Sodium 138 mmol/L (135-145); Total Protein 6.8 g/dL (6.5-8.0)
[2024-08-17 20:00] VITALS: BP 121/72; PULSE 81; RESP 16; TEMP 36.9; O2SAT 97
[2024-08-17] MEDS: Melatonin 3 MG TABLET PO (21:12)
[2024-08-17] MEDS: Benztropine Mesylate 0.5 MG TABLET PO (21:13)
[2024-08-17] MEDS: traZODone HCL 50 MG TABLET PO (21:13)
[2024-08-17] MEDS: QUEtiapine Fumarate 50 MG TABLET PO (21:14)
[2024-08-18 07:47] LABS: Cholesterol 159 mg/dL (<200); HDL Cholesterol 59 mg/dL (>40); LDL Cholesterol Calculated 87 mg/dL (<100); Triglycerides 68 mg/dL (<150)
[2024-08-18 08:03] LABS: Estimated Average Glucose 82 mg/dL; Hemoglobin A1C 75.6866 umol/L; Hemoglobin A1c % 4.5 % (<6.0); Total Hemoglobin (HGBA1C) 2981.5972 umol/L
[2024-08-18 08:22] LABS: Folate 15.2 ng/mL (> or = 4.0); Vitamin B12 596 pg/mL (200-900)
[2024-08-18 08:34] VITALS: BP 137/64; PULSE 64; RESP 18; TEMP 36.4; O2SAT 99
[2024-08-18] MEDS: Doxycycline Monohydrate 100 MG CAPSULE PO ×2 (08:36→21:08)
[2024-08-18] MEDS: Memantine HCl 5 MG TABLET PO ×2 (08:36→21:17)
[2024-08-18] MEDS: Benztropine Mesylate 0.5 MG TABLET PO ×2 (08:36→21:17)
[2024-08-18] MEDS: Folic Acid 1 MG TABLET PO (08:36)
[2024-08-18] MEDS: Losartan Potassium 50 MG TABLET PO (08:36)
[2024-08-18] MEDS: Calcium Oyster Shell Elemental 500 MG TABLET PO (08:36)
[2024-08-18] MEDS: cefuroxime axetiL 500 MG TABLET PO ×2 (08:36→21:08)
[2024-08-18] MEDS: Thiamine HCL 100 MG TABLET PO (08:37)
[2024-08-18] MEDS: risperiDONE 1 MG TABLET PO ×2 (08:37→21:08)
[2024-08-18] MEDS: dilTIAZem HCL CD 120 MG CAP.ER.DEG PO (08:37)
[2024-08-18] MEDS: amLODIPine Besylate 5 MG TABLET PO (08:37)
[2024-08-18] MEDS: Apixaban 5 MG TABLET PO ×2 (08:37→21:17)
[2024-08-18] MEDS: Omeprazole 20 MG CAPSULE.DR PO (08:37)
--- NOTE | 2024-08-18 12:32 | PC.NURSE ---
Pharmacy called for peridex rinse, not available from [email or web address], not loaded, not in patient's cubby. Unable to give medication.
[2024-08-18 20:00] VITALS: BP 123/55; PULSE 88; RESP 18; TEMP 37.5; O2SAT 97
[2024-08-18] MEDS: traZODone HCL 50 MG TABLET PO (21:07)
[2024-08-18] MEDS: Melatonin 3 MG TABLET PO (21:07)
[2024-08-18] MEDS: QUEtiapine Fumarate 50 MG TABLET PO (21:08)
[2024-08-19 08:51] VITALS: BP 104/65; PULSE 88; RESP 18; TEMP 35.8; O2SAT 100
[2024-08-19] MEDS: Doxycycline Monohydrate 100 MG CAPSULE PO (08:53)
[2024-08-19] MEDS: Chlorhexidine Gluc Oral Rinse 15 ML MOUTHWASH BUCCAL (08:53)
[2024-08-19] MEDS: Benztropine Mesylate 0.5 MG TABLET PO (08:54)
[2024-08-19] MEDS: Apixaban 5 MG TABLET PO (08:54)
[2024-08-19] MEDS: Memantine HCl 5 MG TABLET PO (08:54)
[2024-08-19] MEDS: cefuroxime axetiL 500 MG TABLET PO (08:54)
[2024-08-19] MEDS: Calcium Oyster Shell Elemental 500 MG TABLET PO (08:54)
[2024-08-19] MEDS: Omeprazole 20 MG CAPSULE.DR PO (08:55)
[2024-08-19] MEDS: dilTIAZem HCL CD 120 MG CAP.ER.DEG PO (08:55)
[2024-08-19] MEDS: Thiamine HCL 100 MG TABLET PO (08:56)
[2024-08-19] MEDS: Losartan Potassium 50 MG TABLET PO (08:56)
[2024-08-19] MEDS: Folic Acid 1 MG TABLET PO (08:56)
[2024-08-19] MEDS: risperiDONE 1 MG TABLET PO (08:56)
[2024-08-19] MEDS: amLODIPine Besylate 5 MG TABLET PO (08:57)
--- NOTE | 2024-08-19 12:13 | HO.PSYCHPN ---
Subjective Subjective Date of Service: 08/18/24 Reason For Visit: combative Subjective Notes: Section 12B Interim History: Pt slept most of the night. No combative behaviors, less rigidity noted on exam with decrease in dose of risperidone and addition of cogentin. Not oriented to place, situation, month nor year. Mental Status Exam Mental Status Exam Narrative: Appearance: thin, fair hygiene, in NAD Behavior: cooperative Psychomotor: some rigidity noted, no cogwheel Speech: less spontaneous speech, single words TP: derailment, confabulation TC: not Mood: good Affect: constricted SI: denies HI: denies VH/AH: no overt signs at the moment, but confabulation present Delusions: no overt delusional content but confabulating Insight/judgment: impaired x 2 . Memory/cog: alert, not oriented to place, year, month, nor situation. severely impaired. Diagnostics Vital Signs (24Hr): Vital Signs - 24 hr 08/18/24 20:00 08/19/24 08:51 Temperature 99.5 F 96.4 F L Pulse Rate 88 88 Respiratory Rate 18 18 Blood Pressure 123/55 L 104/65 Pulse Oximetry 97 100 Oxygen Delivery Method Room Air Room Air BMI result Body Mass Index 18.6 Labs 08/14/24 13:57 08/17/24 18:41 Labs: Laboratory Results - last 48 hr 08/17/24 08/18/24 18:41 07:25 Sodium 138 Potassium 3.6 Chloride 108 Carbon Dioxide 23 Anion Gap 11 L BUN 12 Creatinine 0.67 Estim Creat Clear Calc 57.0 Estimated GFR > 60 Random Glucose 138 H Estimat Average Glucose 82 Hemoglobin A1c % 4.5 Calcium 9.1 Total Bilirubin 0.5 AST 30 ALT 18 Alkaline Phosphatase 91 Total Protein 6.8 Albumin 3.6 Triglycerides 68 Cholesterol 159 LDL Cholesterol, Calc 87 HDL Cholesterol 59 Vitamin B12 596 Folate 15.2 Imaging Radiology Impressions: ITS Impressions Chest X-Ray 08/14/24 12:39 IMPRESSION: Consider mild interstitial edema in the correct clinical settings versus chronic interstitial lung disease. Electronically signed by: Hermann Sierra MD 08/14/2024 01:19 PM [facility] [place] 08/14/24 13:04 IMPRESSION: No acute intracranial hemorrhage. Small vessel occlusive disease. Superimposed acute nonhemorrhagic ischemia/stroke cannot be excluded. Global cerebral atrophy. Electronically signed by: Hremann Sierra MD 08/14/2024 03:10 PM [facility] [place] Medications Current Medications Al Hydroxide/Mg Hydroxide (Magnesium Hydrox/Alum Hydrox 30 Ml Oral.Susp) 30 ml PO Q6H PRN PRN Reason: Heartburn/Nausea Amlodipine Besylate (Amlodipine Besylate 5 Mg Tablet) 5 mg PO DAILY [facility]; Protocol Last Admin: 08/19/24 08:57 Dose: 5 mg Apixaban (Apixaban 5 Mg Tablet) 5 mg PO BID [facility] Last Admin: 08/19/24 08:54 Dose: 5 mg Benztropine Mesylate (Benztropine Mesylate 0.5 Mg Tablet) 0.5 mg PO BID [facility] Last Admin: 08/19/24 08:54 Dose: 0.5 mg Bisacodyl (Bisacodyl 10 Mg Supp.Rect) 10 mg IL DAILY PRN PRN Reason: Constipation Calcium Carbonate (Calcium Oyster Shell Elemental 500 Mg Tablet) 500 mg PO DAILY [facility] Last Admin: 08/19/24 08:54 Dose: 500 mg Cefuroxime Axetil (Cefuroxime Axetil 500 Mg Tablet) 500 mg PO BID [facility] Last Admin: 08/19/24 08:54 Dose: 500 mg Chlorhexidine Gluconate (Chlorhexidine Gluc Oral Rinse 15 Ml Mouthwash) 15 ml BUCCAL BID [facility] Last Admin: 08/19/24 08:53 Dose: 15 ml Diltiazem HCl (Diltiazem Hcl Cd 120 Mg Cap.Er.Deg) 120 mg PO DAILY [facility]; Protocol Last Admin: 08/19/24 08:55 Dose: 120 mg Doxycycline Monohydrate (Doxycycline Monohydrate 100 Mg Capsule) 100 mg PO BID [facility] Last Admin: 08/19/24 08:53 Dose: 100 mg Ergocalciferol (Ergocalciferol (Vitamin D2) 1,250 Mcg Capsule) 1,250 mcg PO TH [facility] Last Admin: 08/16/24 09:07 Dose: Not Given Folic Acid (Folic Acid 1 Mg Tablet) 1 mg PO DAILY [facility] Last Admin: 08/19/24 08:56 Dose: 1 mg Losartan Potassium (Losartan Potassium 50 Mg Tablet) 50 mg PO DAILY [facility]; Protocol Last Admin: 08/19/24 08:56 Dose: 50 mg Magnesium Hydroxide (Milk Of Magnesia 30 Ml Oral.Susp) 30 ml PO DAILY PRN PRN Reason: Constipation Melatonin (Melatonin 3 Mg Tablet) 3 mg PO BEDTIME [facility] Last Admin: 08/18/24 21:07 Dose: 3 mg Memantine (Memantine Hcl 5 Mg Tablet) 5 mg PO BID [facility] Last Admin: 08/19/24 08:54 Dose: 5 mg Omeprazole (Omeprazole 20 Mg Capsule.Dr) 20 mg PO DAILY [facility] Last Admin: 08/19/24 08:55 Dose: 20 mg Ondansetron HCl (Ondansetron Odt 4 Mg Tab.Rapdis) 4 mg TRANSLINGU Q6H PRN PRN Reason: Nausea Quetiapine Fumarate (Quetiapine Fumarate 50 Mg Tablet) 50 mg PO Q8H PRN PRN Reason: Agitation Last Admin: 08/18/24 21:08 Dose: 50 mg Risperidone (Risperidone 1 Mg Tablet) 1 mg PO BID [facility] Last Admin: 08/19/24 08:56 Dose: 1 mg Sodium Biphosphate/Sodium Phosphate (Sodium Phosphate,[place]-Dibasic 133 Ml Enema) 118 ml [place] DAILY PRN PRN Reason: Constipation Thiamine HCl (Thiamine Hcl 100 Mg Tablet) 100 mg PO DAILY [facility] Last Admin: 08/19/24 08:56 Dose: 100 mg Trazodone HCl (Trazodone Hcl 50 Mg Tablet) 50 mg PO BEDTIME MRX1 PRN PRN Reason: Insomnia Last Admin: 08/18/24 21:07 Dose: 50 mg Allergies Allergies Allergy/AdvReac Type Severity Reaction Status Date / Time cat dander Allergy Unknown Verified 08/14/24 12:19 erythromycin base Allergy Unknown Verified 08/14/24 12:19 Penicillins Allergy Unknown Verified 08/14/24 12:19 pollen extracts Allergy Unknown Verified 08/14/24 12:19 prednisone Allergy Unknown Verified 08/14/24 12:19 vancomycin Allergy Unknown Verified 08/14/24 12:19 Assessment & Plan Assessment & Plan (1) Major 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 Cruz is a 74 year-old woman who was brought from [facility] after running after staff with plastic knife and increased confusion for apparently 3 weeks. It does appear that pt has been oriented mostly to self for longer than 3 weeks. Initially thought of a more acute change in mentation and possible delirium, but it does seem this may be underlying dementia. It does seem to be of alzheimer's type. She has not been combative or aggressive here in the hospital. She apparently has hx of schizophrenia and multiple psych admission throughout her life but information on here is very limited as current caregivers including guardian does not know her well and was not given much information on her. Guardian did mention that she had been at [facility] several times, eventually it would be very helpful to get their medical records. Discussed adding risperidone 1mg po BID- if in fact underlying psychosis, either related to dementia or primarily psychotic disorder, risperidone may be more effective than seroquel alone. Unclear how long she has been on depakote and does not appear to be as helpful. She will also benefit from medication such as namenda for more behavioral aspects related to dementia, which again seems to be related to AD- and advanced at this point. PLAN 08/18 continue current medications. Reason for continued inpatient stay Substantial Risk for: inability to function Time Spent With Patient Time: Total time managing care of this patient today ____ minutes.
--- NOTE | 2024-08-19 12:16 | P.PNPSI_ITS ---
Subjective Subjective Date of Service: 08/19/24 Reason For Visit: combative Subjective Notes: Section 12B Interim History: Pt slept all night. She has been visible in wheelchair, OT does not recommend that pt ambulated on own, poor spatial planning and unsteady. No behavioral concerns. No overt psychosis or paranoid delusions noted. she is taking medications as prescribed. Diagnostics Vital Signs (24Hr): Vital Signs - 24 hr 08/18/24 20:00 08/19/24 08:51 Temperature 99.5 F 96.4 F L Pulse Rate 88 88 Respiratory Rate 18 18 Blood Pressure 123/55 L 104/65 Pulse Oximetry 97 100 Oxygen Delivery Method Room Air Room Air BMI result Body Mass Index 18.6 Labs 08/14/24 13:57 08/17/24 18:41 Labs: Laboratory Results - last 48 hr 08/17/24 08/18/24 18:41 07:25 Sodium 138 Potassium 3.6 Chloride 108 Carbon Dioxide 23 Anion Gap 11 L BUN 12 Creatinine 0.67 Estim Creat Clear Calc 57.0 Estimated GFR > 60 Random Glucose 138 H Estimat Average Glucose 82 Hemoglobin A1c % 4.5 Calcium 9.1 Total Bilirubin 0.5 AST 30 ALT 18 Alkaline Phosphatase 91 Total Protein 6.8 Albumin 3.6 Triglycerides 68 Cholesterol 159 LDL Cholesterol, Calc 87 HDL Cholesterol 59 Vitamin B12 596 Folate 15.2 Imaging Radiology Impressions: ITS Impressions Chest X-Ray 08/14/24 12:39 IMPRESSION: Consider mild interstitial edema in the correct clinical settings versus chronic interstitial lung disease. Electronically signed by: Hermann Sierra MD 08/14/2024 01:19 PM EST RP Head CT 08/14/24 13:04 IMPRESSION: No acute intracranial hemorrhage. Small vessel occlusive disease. Superimposed acute nonhemorrhagic ischemia/stroke cannot be excluded. Global cerebral atrophy. Electronically signed by: Hermann Sierra MD 08/14/2024 03:10 PM EST RP Medications Medications Current Medications Al Hydroxide/Mg Hydroxide (Magnesium Hydrox/Alum Hydrox 30 Ml Oral.Susp) 30 ml PO Q6H PRN PRN Reason: Heartburn/Nausea Amlodipine Besylate (Amlodipine Besylate 5 Mg Tablet) 5 mg PO DAILY [facility]; Protocol Last Admin: 08/19/24 08:57 Dose: 5 mg Apixaban (Apixaban 5 Mg Tablet) 5 mg PO BID [facility] Last Admin: 08/19/24 08:54 Dose: 5 mg Benztropine Mesylate (Benztropine Mesylate 0.5 Mg Tablet) 0.5 mg PO BID [facility] Last Admin: 08/19/24 08:54 Dose: 0.5 mg Bisacodyl (Bisacodyl 10 Mg Supp.Rect) 10 mg [place] DAILY PRN PRN Reason: Constipation Calcium Carbonate (Calcium Oyster Shell Elemental 500 Mg Tablet) 500 mg PO DAILY [facility] Last Admin: 08/19/24 08:54 Dose: 500 mg Cefuroxime Axetil (Cefuroxime Axetil 500 Mg Tablet) 500 mg PO BID [facility] Last Admin: 08/19/24 08:54 Dose: 500 mg Chlorhexidine Gluconate (Chlorhexidine Gluc Oral Rinse 15 Ml Mouthwash) 15 ml BUCCAL BID [facility] Last Admin: 08/19/24 08:53 Dose: 15 ml Diltiazem HCl (Diltiazem Hcl Cd 120 Mg Cap.Er.Deg) 120 mg PO DAILY [facility]; Protocol Last Admin: 08/19/24 08:55 Dose: 120 mg Doxycycline Monohydrate (Doxycycline Monohydrate 100 Mg Capsule) 100 mg PO BID [facility] Last Admin: 08/19/24 08:53 Dose: 100 mg Ergocalciferol (Ergocalciferol (Vitamin D2) 1,250 Mcg Capsule) 1,250 mcg PO TH [facility] Last Admin: 08/16/24 09:07 Dose: Not Given Folic Acid (Folic Acid 1 Mg Tablet) 1 mg PO DAILY [facility] Last Admin: 08/19/24 08:56 Dose: 1 mg Losartan Potassium (Losartan Potassium 50 Mg Tablet) 50 mg PO DAILY [facility]; Protocol Last Admin: 08/19/24 08:56 Dose: 50 mg Magnesium Hydroxide (Milk Of Magnesia 30 Ml Oral.Susp) 30 ml PO DAILY PRN PRN Reason: Constipation Melatonin (Melatonin 3 Mg Tablet) 3 mg PO BEDTIME [facility] Last Admin: 08/18/24 21:07 Dose: 3 mg Memantine (Memantine Hcl 5 Mg Tablet) 5 mg PO BID [facility] Last Admin: 08/19/24 08:54 Dose: 5 mg Omeprazole (Omeprazole 20 Mg Capsule.Dr) 20 mg PO DAILY [facility] Last Admin: 08/19/24 08:55 Dose: 20 mg Ondansetron HCl (Ondansetron Odt 4 Mg Tab.Rapdis) 4 mg TRANSLINGU Q6H PRN PRN Reason: Nausea Quetiapine Fumarate (Quetiapine Fumarate 50 Mg Tablet) 50 mg PO Q8H PRN PRN Reason: Agitation Last Admin: 08/18/24 21:08 Dose: 50 mg Risperidone (Risperidone 1 Mg Tablet) 1 mg PO BID [facility] Last Admin: 08/19/24 08:56 Dose: 1 mg Sodium Biphosphate/Sodium Phosphate (Sodium Phosphate,[place]-Dibasic 133 Ml Enema) 118 ml [place] DAILY PRN PRN Reason: Constipation Thiamine HCl (Thiamine Hcl 100 Mg Tablet) 100 mg PO DAILY [facility] Last Admin: 08/19/24 08:56 Dose: 100 mg Trazodone HCl (Trazodone Hcl 50 Mg Tablet) 50 mg PO BEDTIME MRX1 PRN PRN Reason: Insomnia Last Admin: 08/18/24 21:07 Dose: 50 mg Allergies Allergies Allergy/AdvReac Type Severity Reaction Status Date / Time cat dander Allergy Unknown Verified 08/14/24 12:19 erythromycin base Allergy Unknown Verified 08/14/24 12:19 Penicillins Allergy Unknown Verified 08/14/24 12:19 pollen extracts Allergy Unknown Verified 08/14/24 12:19 prednisone Allergy Unknown Verified 08/14/24 12:19 vancomycin Allergy Unknown Verified 08/14/24 12:19 Assessment & Plan Assessment & Plan (1) Major 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 Cruz is a 74 year-old woman who was brought from [facility] after running after staff with plastic knife and increased confusion for apparently 3 weeks. It does appear that pt has been oriented mostly to self for longer than 3 weeks. Initially thought of a more acute change in mentation and possible delirium, but it does seem this may be underlying dementia. It does seem to be of alzheimer's type. She has not been combative or aggressive here in the hospital. She apparently has hx of schizophrenia and multiple psych admission throughout her life but information on here is very limited as current caregivers including guardian does not know her well and was not given much information on her. Guardian did mention that she had been at [facility] several times, eventually it would be very helpful to get their medical records. Discussed adding risperidone 1mg po BID- if in fact underlying psychosis, either related to dementia or primarily psychotic disorder, risperidone may be more effective than seroquel alone. Unclear how long she has been on depakote and does not appear to be as helpful. She will also benefit from medication such as namenda for more behavioral aspects related to dementia, which again seems to be related to AD- and advanced at this point. PLAN 08/18 continue current medications. 08/19 will hold on amlodipine, low SBP. continue all other meds. No behavioral concerns. in wheelchair due to poor spatial planning and weakness. Reason for continued inpatient stay Substantial Risk for: inability to function Time Spent With Patient Time: Total time managing care of this patient today ____ minutes.
[2024-08-19 20:00] VITALS: RESP 16
[2024-08-20] MEDS: cefuroxime axetiL 500 MG TABLET PO ×3 (00:38→21:04)
[2024-08-20] MEDS: Melatonin 3 MG TABLET PO ×2 (00:38→21:04)
[2024-08-20] MEDS: Doxycycline Monohydrate 100 MG CAPSULE PO ×3 (00:38→21:04)
[2024-08-20] MEDS: QUEtiapine Fumarate 50 MG TABLET PO ×2 (00:39→21:04)
[2024-08-20] MEDS: risperiDONE 1 MG TABLET PO ×3 (00:40→21:04)
[2024-08-20 08:18] VITALS: BP 130/71; PULSE 83; RESP 18; TEMP 36.3; O2SAT 97
[2024-08-20] MEDS: Folic Acid 1 MG TABLET PO (08:52)
[2024-08-20] MEDS: Thiamine HCL 100 MG TABLET PO (08:52)
[2024-08-20] MEDS: Losartan Potassium 50 MG TABLET PO (08:52)
[2024-08-20] MEDS: Apixaban 5 MG TABLET PO ×2 (08:52→21:05)
[2024-08-20] MEDS: dilTIAZem HCL CD 120 MG CAP.ER.DEG PO (08:52)
[2024-08-20] MEDS: Calcium Oyster Shell Elemental 500 MG TABLET PO (08:52)
[2024-08-20] MEDS: Omeprazole 20 MG CAPSULE.DR PO (08:52)
[2024-08-20] MEDS: Memantine HCl 5 MG TABLET PO ×2 (08:52→21:05)
[2024-08-20] MEDS: Benztropine Mesylate 0.5 MG TABLET PO ×2 (08:52→21:04)
[2024-08-20] MEDS: Chlorhexidine Gluc Oral Rinse 15 ML MOUTHWASH BUCCAL ×2 (08:53→20:54)
--- NOTE | 2024-08-20 12:40 | P.PNPSI_ITS ---
Subjective Subjective Date of Service: 08/20/24 Reason For Visit: combative Subjective Notes: Conditional Voluntary Interim History: Pt slept all night. She has been visible in wheelchair, OT does not recommend that pt ambulated on own, poor spatial planning and unsteady. No behavioral concerns. Pleasant on approach. No overt psychosis or paranoid delusions noted. she is taking medications as prescribed. Review of Systems Review of Systems Yes all other systems are reviewed and are negative Mental Status Exam Mental Status Exam Narrative: Appearance: thin, fair hygiene, in NAD Behavior: cooperative Psychomotor: some rigidity noted, no cogwheel Speech: less spontaneous speech, single words TP: derailment, confabulation TC: not Mood: good Affect: constricted SI: denies HI: denies VH/AH: no overt signs at the moment, but confabulation present Delusions: no overt delusional content but confabulating Insight/judgment: impaired x 2 . Memory/cog: alert, not oriented to place, year, month, nor situation. severely impaired. Diagnostics Vital Signs (24Hr): Vital Signs - 24 hr 08/19/24 20:00 08/20/24 08:18 Temperature 97.3 F Pulse Rate 83 Respiratory Rate 16 18 Blood Pressure 130/71 Pulse Oximetry 97 Oxygen Delivery Method Room Air BMI result Body Mass Index 18.6 Labs 08/14/24 13:57 08/17/24 18:41 Imaging Radiology Impressions: ITS Impressions Chest X-Ray 08/14/24 12:39 IMPRESSION: Consider mild interstitial edema in the correct clinical settings versus chronic interstitial lung disease. Electronically signed by: Hermann Sierra MD 08/14/2024 01:19 PM EST RP Head CT 08/14/24 13:04 IMPRESSION: No acute intracranial hemorrhage. Small vessel occlusive disease. Superimposed acute nonhemorrhagic ischemia/stroke cannot be excluded. Global cerebral atrophy. Electronically signed by: Hermann Sierra MD 08/14/2024 03:10 PM EST RP Medications Medications Current Medications Al Hydroxide/Mg Hydroxide (Magnesium Hydrox/Alum Hydrox 30 Ml Oral.Susp) 30 ml PO Q6H PRN PRN Reason: Heartburn/Nausea Apixaban (Apixaban 5 Mg Tablet) 5 mg PO BID [facility] Last Admin: 08/20/24 08:52 Dose: 5 mg Benztropine Mesylate (Benztropine Mesylate 0.5 Mg Tablet) 0.5 mg PO BID [facility] Last Admin: 08/20/24 08:52 Dose: 0.5 mg Bisacodyl (Bisacodyl 10 Mg Supp.Rect) 10 mg [place] DAILY PRN PRN Reason: Constipation Calcium Carbonate (Calcium Oyster Shell Elemental 500 Mg Tablet) 500 mg PO DAILY [facility] Last Admin: 08/20/24 08:52 Dose: 500 mg Cefuroxime Axetil (Cefuroxime Axetil 500 Mg Tablet) 500 mg PO BID [facility] Last Admin: 08/20/24 08:52 Dose: 500 mg Chlorhexidine Gluconate (Chlorhexidine Gluc Oral Rinse 15 Ml Mouthwash) 15 ml BUCCAL BID [facility] Last Admin: 08/20/24 08:53 Dose: 15 ml Diltiazem HCl (Diltiazem Hcl Cd 120 Mg Cap.Er.Deg) 120 mg PO DAILY [facility]; Protocol Last Admin: 08/20/24 08:52 Dose: 120 mg Doxycycline Monohydrate (Doxycycline Monohydrate 100 Mg Capsule) 100 mg PO BID [facility] Last Admin: 08/20/24 08:52 Dose: 100 mg Ergocalciferol (Ergocalciferol (Vitamin D2) 1,250 Mcg Capsule) 1,250 mcg PO TH [facility] Last Admin: 08/16/24 09:07 Dose: Not Given Folic Acid (Folic Acid 1 Mg Tablet) 1 mg PO DAILY [facility] Last Admin: 08/20/24 08:52 Dose: 1 mg Losartan Potassium (Losartan Potassium 50 Mg Tablet) 50 mg PO DAILY [facility]; Protocol Last Admin: 08/20/24 08:52 Dose: 50 mg Magnesium Hydroxide (Milk Of Magnesia 30 Ml Oral.Susp) 30 ml PO DAILY PRN PRN Reason: Constipation Melatonin (Melatonin 3 Mg Tablet) 3 mg PO BEDTIME [facility] Last Admin: 08/20/24 00:38 Dose: 3 mg Memantine (Memantine Hcl 5 Mg Tablet) 5 mg PO BID [facility] Last Admin: 08/20/24 08:52 Dose: 5 mg Omeprazole (Omeprazole 20 Mg Capsule.Dr) 20 mg PO DAILY [facility] Last Admin: 08/20/24 08:52 Dose: 20 mg Ondansetron HCl (Ondansetron Odt 4 Mg Tab.Rapdis) 4 mg TRANSLINGU Q6H PRN PRN Reason: Nausea Quetiapine Fumarate (Quetiapine Fumarate 50 Mg Tablet) 50 mg PO Q8H PRN PRN Reason: Agitation Last Admin: 08/20/24 00:39 Dose: 50 mg Risperidone (Risperidone 1 Mg Tablet) 1 mg PO BID [facility] Last Admin: 08/20/24 08:52 Dose: 1 mg Sodium Biphosphate/Sodium Phosphate (Sodium Phosphate,[place]-Dibasic 133 Ml Enema) 118 ml [place] DAILY PRN PRN Reason: Constipation Thiamine HCl (Thiamine Hcl 100 Mg Tablet) 100 mg PO DAILY [facility] Last Admin: 08/20/24 08:52 Dose: 100 mg Trazodone HCl (Trazodone Hcl 50 Mg Tablet) 50 mg PO BEDTIME MRX1 PRN PRN Reason: Insomnia Last Admin: 08/18/24 21:07 Dose: 50 mg Allergies Allergies Allergy/AdvReac Type Severity Reaction Status Date / Time cat dander Allergy Unknown Verified 08/14/24 12:19 erythromycin base Allergy Unknown Verified 08/14/24 12:19 Penicillins Allergy Unknown Verified 08/14/24 12:19 pollen extracts Allergy Unknown Verified 08/14/24 12:19 prednisone Allergy Unknown Verified 08/14/24 12:19 vancomycin Allergy Unknown Verified 08/14/24 12:19 Assessment & Plan Assessment & Plan (1) Major 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 Cruz is a 74 year-old woman who was brought from [facility] after running after staff with plastic knife and increased confusion for apparently 3 weeks. It does appear that pt has been oriented mostly to self for longer than 3 weeks. Initially thought of a more acute change in mentation and possible delirium, but it does seem this may be underlying dementia. It does seem to be of alzheimer's type. She has not been combative or aggressive here in the hospital. She apparently has hx of schizophrenia and multiple psych admission throughout her life but information on here is very limited as current caregivers including guardian does not know her well and was not given much information on her. Guardian did mention that she had been at [facility] several times, eventually it would be very helpful to get their medical records. Discussed adding risperidone 1mg po BID- if in fact underlying psychosis, either related to dementia or primarily psychotic disorder, risperidone may be more effective than seroquel alone. Unclear how long she has been on depakote and does not appear to be as helpful. She will also benefit from medication such as namenda for more behavioral aspects related to dementia, which again seems to be related to AD- and advanced at this point. PLAN 08/18 continue current medications. 08/19 will hold on amlodipine, low SBP. continue all other meds. No behavioral concerns. in wheelchair due to poor spatial planning and weakness. 08/20 continue tx. Reason for continued inpatient stay Substantial Risk for: inability to function Time Spent With Patient Time: Total time managing care of this patient today ____ minutes.
[2024-08-20 20:00] VITALS: BP 112/63; PULSE 71; RESP 18; TEMP 37.2; O2SAT 99
[2024-08-20] MEDS: traZODone HCL 50 MG TABLET PO (22:35)
[2024-08-21 08:00] VITALS: BP 154/76; PULSE 70; RESP 16; TEMP 36.8; O2SAT 100
[2024-08-21] MEDS: Memantine HCl 5 MG TABLET PO ×2 (08:51→20:24)
[2024-08-21] MEDS: Doxycycline Monohydrate 100 MG CAPSULE PO ×2 (08:52→20:24)
[2024-08-21] MEDS: Calcium Oyster Shell Elemental 500 MG TABLET PO (08:52)
[2024-08-21] MEDS: cefuroxime axetiL 500 MG TABLET PO ×2 (08:52→20:24)
[2024-08-21] MEDS: Losartan Potassium 50 MG TABLET PO (08:52)
[2024-08-21] MEDS: Folic Acid 1 MG TABLET PO (08:52)
[2024-08-21] MEDS: Apixaban 5 MG TABLET PO ×2 (08:52→20:24)
[2024-08-21] MEDS: dilTIAZem HCL CD 120 MG CAP.ER.DEG PO (08:52)
[2024-08-21] MEDS: Chlorhexidine Gluc Oral Rinse 15 ML MOUTHWASH BUCCAL ×2 (08:52→20:24)
[2024-08-21] MEDS: risperiDONE 1 MG TABLET PO ×2 (08:53→20:24)
[2024-08-21] MEDS: Benztropine Mesylate 0.5 MG TABLET PO ×2 (08:53→20:24)
[2024-08-21] MEDS: Omeprazole 20 MG CAPSULE.DR PO (08:54)
[2024-08-21] MEDS: Thiamine HCL 100 MG TABLET PO (08:55)
--- NOTE | 2024-08-21 13:36 | MHC.CLN ---
NUTRITION PATIENT WITH USUALLY GOOD INTAKE AT MEALS. NO NEW NUTRITION INTERVENTIONS. RD TO MONITOR WEEKLY.
--- NOTE | 2024-08-21 14:39 | P.PNPSI_ITS ---
Subjective Subjective Date of Service: 08/21/24 Reason For Visit: combative Subjective Notes: Conditional Voluntary Interim History: Pt alert confused not aggressive Mental Status Exam Mental Status Exam Narrative: Appearance: thin, fair hygiene, in NAD Behavior: cooperative Psychomotor: some rigidity noted, no cogwheel Speech: limited TP: derailment, confabulation TC: non relevant Mood: Affect: constricted SI: denies HI: denies VH/AH: not elicited Delusions: no clear material Insight/judgment: impaired x 2 . Memory/cog: alert, not oriented to place, year, month, nor situation. severely impaired. Diagnostics Vital Signs (24Hr): Vital Signs - 24 hr 08/20/24 20:00 08/21/24 08:00 Temperature 99 F 98.2 F Pulse Rate 71 70 Respiratory Rate 18 16 Blood Pressure 112/63 154/76 H Pulse Oximetry 99 100 Oxygen Delivery Method Room Air Room Air BMI result Body Mass Index 18.6 Labs 08/14/24 13:57 08/17/24 18:41 Imaging Radiology Impressions: ITS Impressions Chest X-Ray 08/14/24 12:39 IMPRESSION: Consider mild interstitial edema in the correct clinical settings versus chronic interstitial lung disease. Electronically signed by: Hermann Sierra MD 08/14/2024 01:19 PM EST RP Head CT 08/14/24 13:04 IMPRESSION: No acute intracranial hemorrhage. Small vessel occlusive disease. Superimposed acute nonhemorrhagic ischemia/stroke cannot be excluded. Global cerebral atrophy. Electronically signed by: Hermann Sierra MD 08/14/2024 03:10 PM EST RP Medications Medications Current Medications Al Hydroxide/Mg Hydroxide (Magnesium Hydrox/Alum Hydrox 30 Ml Oral.Susp) 30 ml PO Q6H PRN PRN Reason: Heartburn/Nausea Apixaban (Apixaban 5 Mg Tablet) 5 mg PO BID [facility] Last Admin: 08/21/24 08:52 Dose: 5 mg Benztropine Mesylate (Benztropine Mesylate 0.5 Mg Tablet) 0.5 mg PO BID [facility] Last Admin: 08/21/24 08:53 Dose: 0.5 mg Bisacodyl (Bisacodyl 10 Mg Supp.Rect) 10 mg [place] DAILY PRN PRN Reason: Constipation Calcium Carbonate (Calcium Oyster Shell Elemental 500 Mg Tablet) 500 mg PO DAILY [facility] Last Admin: 08/21/24 08:52 Dose: 500 mg Cefuroxime Axetil (Cefuroxime Axetil 500 Mg Tablet) 500 mg PO BID [facility] Last Admin: 08/21/24 08:52 Dose: 500 mg Chlorhexidine Gluconate (Chlorhexidine Gluc Oral Rinse 15 Ml Mouthwash) 15 ml BUCCAL BID [facility] Last Admin: 08/21/24 08:52 Dose: 15 ml Diltiazem HCl (Diltiazem Hcl Cd 120 Mg Cap.Er.Deg) 120 mg PO DAILY [facility]; Protocol Last Admin: 08/21/24 08:52 Dose: 120 mg Doxycycline Monohydrate (Doxycycline Monohydrate 100 Mg Capsule) 100 mg PO BID [facility] Last Admin: 08/21/24 08:52 Dose: 100 mg Ergocalciferol (Ergocalciferol (Vitamin D2) 1,250 Mcg Capsule) 1,250 mcg PO TH [facility] Last Admin: 08/16/24 09:07 Dose: Not Given Folic Acid (Folic Acid 1 Mg Tablet) 1 mg PO DAILY [facility] Last Admin: 08/21/24 08:52 Dose: 1 mg Losartan Potassium (Losartan Potassium 50 Mg Tablet) 50 mg PO DAILY [facility]; Protocol Last Admin: 08/21/24 08:52 Dose: 50 mg Magnesium Hydroxide (Milk Of Magnesia 30 Ml Oral.Susp) 30 ml PO DAILY PRN PRN Reason: Constipation Melatonin (Melatonin 3 Mg Tablet) 3 mg PO BEDTIME [facility] Last Admin: 08/20/24 21:04 Dose: 3 mg Memantine (Memantine Hcl 5 Mg Tablet) 5 mg PO BID [facility] Last Admin: 08/21/24 08:51 Dose: 5 mg Omeprazole (Omeprazole 20 Mg Capsule.Dr) 20 mg PO DAILY [facility] Last Admin: 08/21/24 08:54 Dose: 20 mg Ondansetron HCl (Ondansetron Odt 4 Mg Tab.Rapdis) 4 mg TRANSLINGU Q6H PRN PRN Reason: Nausea Quetiapine Fumarate (Quetiapine Fumarate 50 Mg Tablet) 50 mg PO Q8H PRN PRN Reason: Agitation Last Admin: 08/20/24 21:04 Dose: 50 mg Risperidone (Risperidone 1 Mg Tablet) 1 mg PO BID [facility] Last Admin: 08/21/24 08:53 Dose: 1 mg Sodium Biphosphate/Sodium Phosphate (Sodium Phosphate,[place]-Dibasic 133 Ml Enema) 118 ml [place] DAILY PRN PRN Reason: Constipation Thiamine HCl (Thiamine Hcl 100 Mg Tablet) 100 mg PO DAILY [facility] Last Admin: 08/21/24 08:55 Dose: 100 mg Trazodone HCl (Trazodone Hcl 50 Mg Tablet) 50 mg PO BEDTIME MRX1 PRN PRN Reason: Insomnia Last Admin: 08/20/24 22:35 Dose: 50 mg Allergies Allergies Allergy/AdvReac Type Severity Reaction Status Date / Time cat dander Allergy Unknown Verified 08/14/24 12:19 erythromycin base Allergy Unknown Verified 08/14/24 12:19 Penicillins Allergy Unknown Verified 08/14/24 12:19 pollen extracts Allergy Unknown Verified 08/14/24 12:19 prednisone Allergy Unknown Verified 08/14/24 12:19 vancomycin Allergy Unknown Verified 08/14/24 12:19 Assessment & Plan Assessment & Plan (1) Major 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 Cruz is a 74 year-old woman who was brought from [facility] after running after staff with plastic knife and increased confusion for apparently 3 weeks. It does appear that pt has been oriented mostly to self for longer than 3 weeks. Initially thought of a more acute change in mentation and possible delirium, but it does seem this may be underlying dementia. It does seem to be of alzheimer's type. She has not been combative or aggressive here in the hospital. She apparently has hx of schizophrenia and multiple psych admission throughout her life but information on here is very limited as current caregivers including guardian does not know her well and was not given much information on her. Guardian did mention that she had been at [facility] several times, eventually it would be very helpful to get their medical records. Discussed adding risperidone 1mg po BID- if in fact underlying psychosis, either related to dementia or primarily psychotic disorder, risperidone may be more effective than seroquel alone. Unclear how long she has been on depakote and does not appear to be as helpful. She will also benefit from medication such as namenda for more behavioral aspects related to dementia, which again seems to be related to AD- and advanced at this point. PLAN 08/18 continue current medications. 08/19 will hold on amlodipine, low SBP. continue all other meds. No behavioral concerns. in wheelchair due to poor spatial planning and weakness. 08/20 continue tx. 08/21/24 cont plan of care started on namenda risperadol. Reason for continued inpatient stay Substantial Risk for: inability to function and rapid decompensation Time Spent With Patient Time: Total time managing care of this patient today ____ minutes.
[2024-08-21 20:00] VITALS: BP 125/72; PULSE 94; RESP 16; TEMP 37; O2SAT 98
[2024-08-21] MEDS: Melatonin 3 MG TABLET PO (20:24)
[2024-08-22 08:00] VITALS: BP 125/84; PULSE 97; RESP 18; TEMP 36.9
[2024-08-22] MEDS: Chlorhexidine Gluc Oral Rinse 15 ML MOUTHWASH BUCCAL ×2 (09:13→20:10)
[2024-08-22 09:14] VITALS: BP 125/84; PULSE 97
[2024-08-22] MEDS: dilTIAZem HCL CD 120 MG CAP.ER.DEG PO (09:14)
[2024-08-22] MEDS: Apixaban 5 MG TABLET PO ×2 (09:14→20:10)
[2024-08-22] MEDS: Benztropine Mesylate 0.5 MG TABLET PO ×2 (09:14→20:10)
[2024-08-22] MEDS: cefuroxime axetiL 500 MG TABLET PO ×2 (09:14→20:09)
[2024-08-22] MEDS: risperiDONE 1 MG TABLET PO ×2 (09:14→20:10)
[2024-08-22] MEDS: Calcium Oyster Shell Elemental 500 MG TABLET PO (09:14)
[2024-08-22 09:15] VITALS: BP 125/84
[2024-08-22] MEDS: Folic Acid 1 MG TABLET PO (09:15)
[2024-08-22] MEDS: Memantine HCl 5 MG TABLET PO ×2 (09:15→20:10)
[2024-08-22] MEDS: Omeprazole 20 MG CAPSULE.DR PO (09:15)
[2024-08-22] MEDS: Losartan Potassium 50 MG TABLET PO (09:15)
[2024-08-22] MEDS: Doxycycline Monohydrate 100 MG CAPSULE PO ×2 (09:16→20:10)
[2024-08-22] MEDS: Thiamine HCL 100 MG TABLET PO (09:16)
--- NOTE | 2024-08-22 12:43 | P.PNPSI_ITS ---
Subjective Subjective Date of Service: 08/22/24 Reason For Visit: combative Subjective Notes: Conditional Voluntary Interim History: Patient was seen and discussed in rounds today. Records and plans were reviewed. She continues to be quite confused but pleasant. Safe on the unit. No complaints or side effects. Eating and sleeping adequately. No changes were made today Review of Systems Review of Systems Yes Unobtainable due to mental status Mental Status Exam Mental Status Exam Narrative: In today she is alert and oriented to self only. Speech is impaired. Moderate eye contact. No psychosis. Cognitively impaired. No SI. Judgment is impaired Diagnostics Vital Signs (24Hr): Vital Signs - 24 hr 08/21/24 20:00 08/22/24 08:00 08/22/24 09:14 Temperature 98.6 F 98.4 F Pulse Rate 94 97 97 Respiratory Rate 16 18 Blood Pressure 125/72 125/84 125/84 Pulse Oximetry 98 Oxygen Delivery Method Room Air 08/22/24 09:15 Temperature Pulse Rate Respiratory Rate Blood Pressure 125/84 Pulse Oximetry Oxygen Delivery Method BMI result Body Mass Index 18.6 Labs 08/14/24 13:57 08/17/24 18:41 Imaging Radiology Impressions: ITS Impressions Chest X-Ray 08/14/24 12:39 IMPRESSION: Consider mild interstitial edema in the correct clinical settings versus chronic interstitial lung disease. Electronically signed by: Hermann Sierra MD 08/14/2024 01:19 PM EST RP Head CT 08/14/24 13:04 IMPRESSION: No acute intracranial hemorrhage. Small vessel occlusive disease. Superimposed acute nonhemorrhagic ischemia/stroke cannot be excluded. Global cerebral atrophy. Electronically signed by: Hermann Sierra MD 08/14/2024 03:10 PM EST RP Medications Medications Current Medications Al Hydroxide/Mg Hydroxide (Magnesium Hydrox/Alum Hydrox 30 Ml Oral.Susp) 30 ml PO Q6H PRN PRN Reason: Heartburn/Nausea Apixaban (Apixaban 5 Mg Tablet) 5 mg PO BID [facility] Last Admin: 08/22/24 09:14 Dose: 5 mg Benztropine Mesylate (Benztropine Mesylate 0.5 Mg Tablet) 0.5 mg PO BID [facility] Last Admin: 08/22/24 09:14 Dose: 0.5 mg Bisacodyl (Bisacodyl 10 Mg Supp.Rect) 10 mg UT DAILY PRN PRN Reason: Constipation Calcium Carbonate (Calcium Oyster Shell Elemental 500 Mg Tablet) 500 mg PO DAILY [facility] Last Admin: 08/22/24 09:14 Dose: 500 mg Cefuroxime Axetil (Cefuroxime Axetil 500 Mg Tablet) 500 mg PO BID [facility] Last Admin: 08/22/24 09:14 Dose: 500 mg Chlorhexidine Gluconate (Chlorhexidine Gluc Oral Rinse 15 Ml Mouthwash) 15 ml BUCCAL BID [facility] Last Admin: 08/22/24 09:13 Dose: 15 ml Diltiazem HCl (Diltiazem Hcl Cd 120 Mg Cap.Er.Deg) 120 mg PO DAILY [facility]; Protocol Last Admin: 08/22/24 09:14 Dose: 120 mg Doxycycline Monohydrate (Doxycycline Monohydrate 100 Mg Capsule) 100 mg PO BID [facility] Last Admin: 08/22/24 09:16 Dose: 100 mg Ergocalciferol (Ergocalciferol (Vitamin D2) 1,250 Mcg Capsule) 1,250 mcg PO TH [facility] Last Admin: 08/16/24 09:07 Dose: Not Given Folic Acid (Folic Acid 1 Mg Tablet) 1 mg PO DAILY [facility] Last Admin: 08/22/24 09:15 Dose: 1 mg Losartan Potassium (Losartan Potassium 50 Mg Tablet) 50 mg PO DAILY [facility]; Protocol Last Admin: 08/22/24 09:15 Dose: 50 mg Magnesium Hydroxide (Milk Of Magnesia 30 Ml Oral.Susp) 30 ml PO DAILY PRN PRN Reason: Constipation Melatonin (Melatonin 3 Mg Tablet) 3 mg PO BEDTIME [facility] Last Admin: 08/21/24 20:24 Dose: 3 mg Memantine (Memantine Hcl 5 Mg Tablet) 5 mg PO BID [facility] Last Admin: 08/22/24 09:15 Dose: 5 mg Omeprazole (Omeprazole 20 Mg Capsule.Dr) 20 mg PO DAILY [facility] Last Admin: 08/22/24 09:15 Dose: 20 mg Ondansetron HCl (Ondansetron Odt 4 Mg Tab.Rapdis) 4 mg TRANSLINGU Q6H PRN PRN Reason: Nausea Quetiapine Fumarate (Quetiapine Fumarate 50 Mg Tablet) 50 mg PO Q8H PRN PRN Reason: Agitation Last Admin: 08/20/24 21:04 Dose: 50 mg Risperidone (Risperidone 1 Mg Tablet) 1 mg PO BID [facility] Last Admin: 08/22/24 09:14 Dose: 1 mg Sodium Biphosphate/Sodium Phosphate (Sodium Phosphate,[place]-Dibasic 133 Ml Enema) 118 ml UT DAILY PRN PRN Reason: Constipation Thiamine HCl (Thiamine Hcl 100 Mg Tablet) 100 mg PO DAILY [facility] Last Admin: 08/22/24 09:16 Dose: 100 mg Trazodone HCl (Trazodone Hcl 50 Mg Tablet) 50 mg PO BEDTIME MRX1 PRN PRN Reason: Insomnia Last Admin: 08/20/24 22:35 Dose: 50 mg Allergies Allergies Allergy/AdvReac Type Severity Reaction Status Date / Time cat dander Allergy Unknown Verified 08/14/24 12:19 erythromycin base Allergy Unknown Verified 08/14/24 12:19 Penicillins Allergy Unknown Verified 08/14/24 12:19 pollen extracts Allergy Unknown Verified 08/14/24 12:19 prednisone Allergy Unknown Verified 08/14/24 12:19 vancomycin Allergy Unknown Verified 08/14/24 12:19 Assessment & Plan Assessment & Plan (1) Major 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 Cruz is a 74 year-old woman who was brought from [facility] after running after staff with plastic knife and increased confusion for apparently 3 weeks. It does appear that pt has been oriented mostly to self for longer than 3 weeks. Initially thought of a more acute change in mentation and possible delirium, but it does seem this may be underlying dementia. It does seem to be of alzheimer's type. She has not been combative or aggressive here in the hospital. She apparently has hx of schizophrenia and multiple psych admission throughout her life but information on here is very limited as current caregivers including guardian does not know her well and was not given much information on her. Guardian did mention that she had been at [facility] several times, eventually it would be very helpful to get their medical records. Discussed adding risperidone 1mg po BID- if in fact underlying psychosis, either related to dementia or primarily psychotic disorder, risperidone may be more effective than seroquel alone. Unclear how long she has been on depakote and does not appear to be as helpful. She will also benefit from medication such as namenda for more behavioral aspects related to dementia, which again seems to be related to AD- and advanced at this point. PLAN 08/18 continue current medications. 08/19 will hold on amlodipine, low SBP. continue all other meds. No behavioral concerns. in wheelchair due to poor spatial planning and weakness. 08/20 continue tx. 08/21/2408/22: Continue current regimen and plans cont plan of care started on namenda risperadol. Reason for continued inpatient stay Substantial Risk for: inability to function Time Spent With Patient Time: Total time managing care of this patient today ____ minutes.
[2024-08-22 20:00] VITALS: BP 123/64; PULSE 71; RESP 16; TEMP 36.8; O2SAT 98
[2024-08-22] MEDS: Melatonin 3 MG TABLET PO (20:10)
[2024-08-23] MEDS: QUEtiapine Fumarate 50 MG TABLET PO (00:17)
[2024-08-23] MEDS: traZODone HCL 50 MG TABLET PO (00:17)
[2024-08-23 07:00] VITALS: BMI 21.4
[2024-08-23 08:35] VITALS: BP 117/67; PULSE 87; RESP 16; TEMP 36.1; O2SAT 99
[2024-08-23] MEDS: Chlorhexidine Gluc Oral Rinse 15 ML MOUTHWASH BUCCAL (08:37)
[2024-08-23] MEDS: risperiDONE 1 MG TABLET PO (08:37)
[2024-08-23] MEDS: Apixaban 5 MG TABLET PO (08:37)
[2024-08-23] MEDS: Thiamine HCL 100 MG TABLET PO (08:37)
[2024-08-23] MEDS: Losartan Potassium 50 MG TABLET PO (08:37)
[2024-08-23] MEDS: Memantine HCl 5 MG TABLET PO (08:38)
[2024-08-23] MEDS: Folic Acid 1 MG TABLET PO (08:38)
[2024-08-23] MEDS: Benztropine Mesylate 0.5 MG TABLET PO (08:38)
[2024-08-23] MEDS: Calcium Oyster Shell Elemental 500 MG TABLET PO (08:38)
[2024-08-23] MEDS: Doxycycline Monohydrate 100 MG CAPSULE PO (08:43)
[2024-08-23] MEDS: dilTIAZem HCL CD 120 MG CAP.ER.DEG PO (08:44)
[2024-08-23] MEDS: cefuroxime axetiL 500 MG TABLET PO (08:46)
--- NOTE | 2024-08-23 14:01 | PM.PSYDC ---
DS: Providers Provider Date of Service: 08/23/24 Date of admission: 08/17/24 14:16 Date of discharge: 08/23/24 Primary care physician: IFTIKHAR TOLENTINO DS: Diagnosis Discharge Diagnosis (1) Major neurocognitive disorder due to Alzheimer disease, with behavioral disturbance: Status: Acute (2) Schizophrenia: Status: Acute DS: Medications Discharge Medications Home Medications: Home Medications ?Medication ?Instructions ?Recorded ?Confirmed acidophilus 100 million 1 cap PO BID 08/14/24 08/14/24 cell-pectin, citrus 10 mg capsule bisacodyl 10 mg rectal suppository 10 mg SC DAILY PRN Constipation 08/14/24 08/14/24 chlorhexidine gluconate 0.12 % 15 ml buccal BID 08/14/24 08/14/24 mouthwash ergocalciferol (vitamin D2) 1,250 1,250 mcg PO TH 08/14/24 08/14/24 mcg (50,000 unit) capsule folic acid 1 mg tablet 1 mg PO DAILY 08/14/24 08/14/24 sodium phosphates 19 gram-7 118 ml SC DAILY PRN Constipation 08/14/24 08/14/24 gram/118 mL enema (Fleet Enema) thiamine HCl (vitamin B1) 100 mg 100 mg PO DAILY 08/14/24 08/14/24 tablet Previous Rx's ?Medication ?Instructions ?Recorded apixaban 5 mg tablet (Eliquis) 5 mg PO BID #60 tabs 08/23/24 benztropine 0.5 mg tablet 0.5 mg PO BID #60 tabs 08/23/24 calcium carbonate (Oyster Shell 500 mg PO DAILY #30 tabs 08/23/24 Calcium 500) diltiazem HCl 120 mg 120 mg PO DAILY #30 caps 08/23/24 capsule,extended release 24 hr (Cardizem CD) ergocalciferol (vitamin D2) 1,250 1,250 mcg PO TH #0 caps 08/23/24 mcg (50,000 unit) capsule (Vitamin D2) losartan 50 mg tablet 50 mg PO DAILY #30 tabs 08/23/24 melatonin 3 mg tablet 6 mg (2 x 3 mg) PO BEDTIME #60 tabs 08/23/24 memantine 5 mg tablet 5 mg PO BID #60 tabs 08/23/24 omeprazole 20 mg capsule,delayed 20 mg PO DAILY #30 caps 08/23/24 release risperidone 1 mg tablet 1 mg PO BID #60 tabs 08/23/24 trazodone 50 mg tablet 50 mg PO BEDTIME Insomnia #30 tabs 08/23/24 Mental Status Exam Mental Status Exam Narrative: Appearance: thin, fair hygiene, in NAD Behavior: cooperative Psychomotor: some rigidity noted, no cogwheel Speech: less spontaneous speech, single words TP: derailment, confabulation TC: not Mood: good Affect: constricted SI: denies HI: denies VH/AH: no overt signs at the moment, but confabulation present Delusions: no overt delusional content but confabulating Insight/judgment: impaired x 2 . Memory/cog: alert, not oriented to place, year, month, nor situation. severely impaired. Data Data Completed and Pending Completed studies during hospitalization [Text1]: 08/17/24 08/18/24 18:41 07:25 Sodium 138 Potassium 3.6 Chloride 108 Carbon Dioxide 23 Anion Gap 11 L BUN 12 Creatinine 0.67 Estim Creat Clear Calc 57.0 Estimated GFR > 60 Random Glucose 138 H Estimat Average Glucose 82 Hemoglobin A1c % 4.5 Calcium 9.1 Total Bilirubin 0.5 AST 30 ALT 18 Alkaline Phosphatase 91 Total Protein 6.8 Albumin 3.6 Triglycerides 68 Cholesterol 159 LDL Cholesterol, Calc 87 HDL Cholesterol 59 Vitamin B12 596 Folate 15.2 Imaging Diagnostic Imaging Impressions Chest X-Ray 08/14/24 12:39 IMPRESSION: Consider mild interstitial edema in the correct clinical settings versus chronic interstitial lung disease. Electronically signed by: Hermann Sierra MD 08/14/2024 01:19 PM EST RP Head CT 08/14/24 13:04 IMPRESSION: No acute intracranial hemorrhage. Small vessel occlusive disease. Superimposed acute nonhemorrhagic ischemia/stroke cannot be excluded. Global cerebral atrophy. Electronically signed by: Hermann Sierra MD 08/14/2024 03:10 PM EST RP DS: Summary Hospital Course Hospital Course: Ms. Guan is a 74 year-old woman with hx of schizophrenia and dementia who resides at [facility]. She has been there for about 4 months. [place] going there [place] [facility] and medical records are limited. [facility], reports that pt for the past 3 weeks appears more confused.Initial report also includes difficulty ambulating but also it was reported that she was chasing staff with plastic knife. In the ED, pt presented as somewhat anxious. She is not oriented to place, month, year, nor situation. She is not able to tell this real estate underwriter where she lives. She thinks we are in [place] and she is waiting to go see her friend Chucky. She thinks she knows this real estate underwriter and insists that I also know Sheila stating He is down the road. She does not appear as suspicious at this time. Her speech noted to have significant confabulation. She denies SI/HI. She also denies depression and has no recollection as to why she is here. She is not able to always tell this is a hospital setting. When asked about how long she has been here she states oh that's ancient history. She denies any physical concerns. Collateral information from guardian Kaylen Castillo who reports she is new to pt, and was given limited information on her. Kaylen does report that as far as she is aware pt has been oriented only to self for a very long time and not new. This real estate underwriter also reviewed records from [facility] from earlier this month, pt also presented as oriented only to self. On the unit, pt presents as calm with a constricted affect. Noted increased rigidity which may be related to antipsychotic risperidone started while in the ED. She continues to present as not oriented to place, month, year nor situation. Not able to provide much information. While in the ED, pt had episodes of combative behaviors requiring IM medication. HOSPITAL COURSE On the unit, pt was admitted on a sect 12b as she did not show understanding of situation nor was oriented to place (not month nor year). While in the ED, seroquel was switched to risperidone to target delusional content which had been reported by both [facility] and her guardian. It does appear that impairments in orientation are not new and progressive. 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 Depakote was discontinued mostly as it was reported increased confusion with the medication and sedation. She was maintain mostly on risperidone. She did have some parkinsonism with higher doses up to 3mg/day, but was able to tolerate risperidone 1mg po BID. She was also started on Namenda for behavioral management of agitation in setting of dementia. She was sleeping and eating well. Her ambulation did improve while on the unit, from initially using wheelchair to eventually being able to ambulate with walker. She was pleasant, but of course confused. She was taking medications as prescribed. There were no incidences of disruptive behaviors nor need for restraints. Therefore at the end of sect 12b, pt was safe to be discharged back to [facility]. Status at Discharge Cognitive/behavioral status at discharge: Pt with bright, non labile affect. No SI/HI. No overt psychosis or delusions but significant cofabulation. No aggression towards self or others. She is sleeping and eating well. Functional status at discharge: uses cane/walker Overall status at discharge: patient is back to baseline Time Spent with Patient Time attestation: Total time managing care of this patient today ___35_ minutes. Time spent: Greater than 30 minutes Discharge Plan Discharge Anticipated Discharge Date/Time: 08/23/24 13:50 Patient Disposition: Home, Self-Care Discharge Diagnosis: AD Schizophrenia Referrals: IFTIKHAR TOLENTINO [Primary Care Provider] - 1 Week Discharge Medications: New losartan 50 mg Tablet 50 mg PO DAILY Qty: 30 0RF Protocol: Hold for SBP< HOLD for SBP < : 90 benztropine 0.5 mg Tablet 0.5 mg PO BID Qty: 60 0RF trazodone 50 mg Tablet 50 mg PO BEDTIME Qty: 30 0RF melatonin 3 mg Tablet 6 mg PO BEDTIME Qty: 60 0RF calcium carbonate [Oyster Shell Calcium 500] 500 mg calcium (1,250 mg) Tablet 500 mg PO DAILY Qty: 30 0RF omeprazole 20 mg Capsule,Delayed Release(Dr/Ec) 20 mg PO DAILY Qty: 30 0RF diltiazem HCl [Cardizem CD] 120 mg Capsule,Extended Release 24hr 120 mg PO DAILY Qty: 30 0RF Protocol: Hold for SBP/HR < HOLD for SBP < : 90 HOLD for HR < : 60 risperidone 1 mg Tablet 1 mg PO BID Qty: 60 0RF memantine 5 mg Tablet 5 mg PO BID Qty: 60 0RF Eliquis 5 mg Tablet 5 mg PO BID Qty: 60 0RF ergocalciferol (vitamin D2) [Vitamin D2] 1,250 mcg (50,000 unit) Capsule 1,250 mcg PO TH Qty: 0 0RF Continued thiamine HCl (vitamin B1) 100 mg Tablet 100 mg PO DAILY folic acid 1 mg Tablet 1 mg PO DAILY bisacodyl 10 mg Suppository 10 mg SC DAILY PRN (Reason: Constipation) Fleet Enema 19-7 gram/118 mL Enema 118 ml SC DAILY PRN (Reason: Constipation) Rx Instructions: USE IF BISACODYL SUPPOSITORY IS INEFFECTIVE ergocalciferol (vitamin D2) 1,250 mcg (50,000 unit) Capsule 1,250 mcg PO TH chlorhexidine gluconate 0.12 % Mouthwash 15 ml BUCCAL BID acidophilus-pectin, citrus 100 million cell-10 mg Capsule 1 cap PO BID Rx Instructions: FOR LOOSE STOOL. START ON 08/09/24 FOR 7 DAYS Discontinued doxycycline hyclate 100 mg Capsule 100 mg PO BID hydroxyzine HCl 25 mg Tablet 25 mg PO TID quetiapine 50 mg tablet 150 mg PO BID losartan 50 mg Tablet 50 mg PO DAILY quetiapine 25 mg Tablet 25 mg PO Q8H PRN (Reason: Agitation) cefpodoxime 200 mg Tablet 200 mg PO BID Rx Instructions: must administer with a meal/food diltiazem HCl 120 mg Capsule,Extended Release 24 Hr 120 mg PO BID divalproex 125 mg Tablet,Delayed Release (Dr/Ec) 625 mg PO BID melatonin 1 mg Tablet 3 mg PO BEDTIME Eliquis 5 mg Tablet 5 mg PO BID pantoprazole 40 mg Tablet,Delayed Release (Dr/Ec) 40 mg PO DAILY acetaminophen 325 mg Tablet 650 mg PO Q6H PRN (Reason: Pain) ondansetron HCl 4 mg Tablet 4 mg PO Q6H PRN (Reason: Nausea) magnesium hydroxide [Milk of Magnesia] 400 mg/5 mL Suspension 30 ml PO DAILY PRN (Reason: Constipation) Rx Instructions: USE IF NO BOWEL MOVEMENT IN 3 DAYS calcium carbonate 500 mg calcium (1,250 mg) Tablet 500 mg PO DAILY menthol 2.5 % Gel 1 appl TOPICAL BID Discharge Orders: Discharge Order (Routine); Ordered 08/23/24 Ordered By: Talia Bond Diet: Regular diet Activity on Discharge: wheelchair Stand Alone Forms: Patient Portal Discharge page, Community Support Print Language: Indian Care Plan Goals: 1. maintain mood 2. No aggression towards self or others Health Concerns: follow up with PCP Plan of Treatment: take medications as prescribed Assessment: pt with brighter, non labile affect. NO SI/HI. Orientation is only to self and this seems to be baseline. Sleeping and eating well. no behavioral concerns. Discharge Date/Time: 08/23/24 16:40
--- NOTE | 2024-08-23 16:18 | P.PNPSI_ITS ---
Subjective Subjective Date of Service: 08/23/24 Reason For Visit: combative Subjective Notes: Conditional Voluntary Interim History: The patient had been pleasantly confused, taking all his medications quiet slept only 3 hours. The staff has noticed that she is extremely disorganized. On interview the patient denies new symptoms, pleasantly confused easily redirectable Mental Status Exam Mental Status Exam Patient Appearance: Appropriate Patient Orientation: Person and Situation Level of Consciousness: Awake and Appropriate Patient Behavior: Guarded and Passive Mood Description: Withdrawn Affect Description: Constricted Patient Cognition Impaired: Yes Ability to Follow Directions: Good Speech Pattern: Clear Hallucinations: None Delusions: Ideas of Reference Thought Process: Distracted and Slowed Thinking Thought Content: positive for [place] and positive for Poverty of Content Judgement: Fair Diagnostics Vital Signs (24Hr): Vital Signs - 24 hr 08/22/24 20:00 08/23/24 08:35 Temperature 98.3 F 97 F Pulse Rate 71 87 Respiratory Rate 16 16 Blood Pressure 123/64 117/67 Pulse Oximetry 98 99 Oxygen Delivery Method Room Air Room Air BMI result Body Mass Index 21.4 Labs 08/14/24 13:57 08/17/24 18:41 Imaging Radiology Impressions: ITS Impressions Chest X-Ray 08/14/24 12:39 IMPRESSION: Consider mild interstitial edema in the correct clinical settings versus chronic interstitial lung disease. Electronically signed by: Hermann Sierra MD 08/14/2024 01:19 PM EST RP Head CT 08/14/24 13:04 IMPRESSION: No acute intracranial hemorrhage. Small vessel occlusive disease. Superimposed acute nonhemorrhagic ischemia/stroke cannot be excluded. Global cerebral atrophy. Electronically signed by: Hermann Sierra MD 08/14/2024 03:10 PM EST RP Medications Medications Current Medications Al Hydroxide/Mg Hydroxide (Magnesium Hydrox/Alum Hydrox 30 Ml Oral.Susp) 30 ml PO Q6H PRN PRN Reason: Heartburn/Nausea Apixaban (Apixaban 5 Mg Tablet) 5 mg PO BID [facility] Last Admin: 08/23/24 08:37 Dose: 5 mg Benztropine Mesylate (Benztropine Mesylate 0.5 Mg Tablet) 0.5 mg PO BID [facility] Last Admin: 08/23/24 08:38 Dose: 0.5 mg Bisacodyl (Bisacodyl 10 Mg Supp.Rect) 10 mg MI DAILY PRN PRN Reason: Constipation Calcium Carbonate (Calcium Oyster Shell Elemental 500 Mg Tablet) 500 mg PO DAILY [facility] Last Admin: 08/23/24 08:38 Dose: 500 mg Cefuroxime Axetil (Cefuroxime Axetil 500 Mg Tablet) 500 mg PO BID [facility] Last Admin: 08/23/24 08:46 Dose: 500 mg Chlorhexidine Gluconate (Chlorhexidine Gluc Oral Rinse 15 Ml Mouthwash) 15 ml BUCCAL BID [facility] Last Admin: 08/23/24 08:37 Dose: 15 ml Diltiazem HCl (Diltiazem Hcl Cd 120 Mg Cap.Er.Deg) 120 mg PO DAILY [facility]; Protocol Last Admin: 08/23/24 08:44 Dose: 120 mg Doxycycline Monohydrate (Doxycycline Monohydrate 100 Mg Capsule) 100 mg PO BID [facility] Last Admin: 08/23/24 08:43 Dose: 100 mg Ergocalciferol (Ergocalciferol (Vitamin D2) 1,250 Mcg Capsule) 1,250 mcg PO TH [facility] Last Admin: 08/23/24 08:55 Dose: Not Given Folic Acid (Folic Acid 1 Mg Tablet) 1 mg PO DAILY [facility] Last Admin: 08/23/24 08:38 Dose: 1 mg Losartan Potassium (Losartan Potassium 50 Mg Tablet) 50 mg PO DAILY [facility]; Protocol Last Admin: 08/23/24 08:37 Dose: 50 mg Magnesium Hydroxide (Milk Of Magnesia 30 Ml Oral.Susp) 30 ml PO DAILY PRN PRN Reason: Constipation Melatonin (Melatonin 3 Mg Tablet) 3 mg PO BEDTIME [facility] Last Admin: 08/22/24 20:10 Dose: 3 mg Memantine (Memantine Hcl 5 Mg Tablet) 5 mg PO BID [facility] Last Admin: 08/23/24 08:38 Dose: 5 mg Omeprazole (Omeprazole 20 Mg Capsule.Dr) 20 mg PO DAILY [facility] Last Admin: 08/23/24 08:56 Dose: Not Given Ondansetron HCl (Ondansetron Odt 4 Mg Tab.Rapdis) 4 mg TRANSLINGU Q6H PRN PRN Reason: Nausea Quetiapine Fumarate (Quetiapine Fumarate 50 Mg Tablet) 50 mg PO Q8H PRN PRN Reason: Agitation Last Admin: 08/23/24 00:17 Dose: 50 mg Risperidone (Risperidone 1 Mg Tablet) 1 mg PO BID [facility] Last Admin: 08/23/24 08:37 Dose: 1 mg Sodium Biphosphate/Sodium Phosphate (Sodium Phosphate,Gosper-Dibasic 133 Ml Enema) 118 ml MI DAILY PRN PRN Reason: Constipation Thiamine HCl (Thiamine Hcl 100 Mg Tablet) 100 mg PO DAILY [facility] Last Admin: 08/23/24 08:37 Dose: 100 mg Trazodone HCl (Trazodone Hcl 50 Mg Tablet) 50 mg PO BEDTIME MRX1 PRN PRN Reason: Insomnia Last Admin: 08/23/24 00:17 Dose: 50 mg Allergies Allergies Allergy/AdvReac Type Severity Reaction Status Date / Time cat dander Allergy Unknown Verified 08/14/24 12:19 erythromycin base Allergy Unknown Verified 08/14/24 12:19 Penicillins Allergy Unknown Verified 08/14/24 12:19 pollen extracts Allergy Unknown Verified 08/14/24 12:19 prednisone Allergy Unknown Verified 08/14/24 12:19 vancomycin Allergy Unknown Verified 08/14/24 12:19 Assessment & Plan Assessment & Plan (1) Major 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 Cruz is a 74 year-old woman who was brought from [facility] after running after staff with plastic knife and increased confusion for apparently 3 weeks. It does appear that pt has been oriented mostly to self for longer than 3 weeks. Initially thought of a more acute change in mentation and possible delirium, but it does seem this may be underlying dementia. It does seem to be of alzheimer's type. She has not been combative or aggressive here in the hospital. She apparently has hx of schizophrenia and multiple psych admission throughout her life but information on here is very limited as current caregivers including guardian does not know her well and was not given much information on her. Guardian did mention that she had been at [facility] several times, eventually it would be very helpful to get their medical records. Discussed adding risperidone 1mg po BID- if in fact underlying psychosis, either related to dementia or primarily psychotic disorder, risperidone may be more effective than seroquel alone. Unclear how long she has been on depakote and does not appear to be as helpful. She will also benefit from medication such as namenda for more behavioral aspects related to dementia, which again seems to be related to AD- and advanced at this point. PLAN 08/18 continue current medications. 08/19 will hold on amlodipine, low SBP. continue all other meds. No behavioral concerns. in wheelchair due to poor spatial planning and weakness. 08/20 continue tx. 08/21/2408/22: Continue current regimen and plans cont plan of care started on namenda risperadol. 08/23 continue same treatment Reason for continued inpatient stay Substantial Risk for: inability to function, rapid decompensation and med/psych decompensation Time Spent With Patient Time: Total time managing care of this patient today __20__ minutes.
== END 2024-08-23 16:40 | disposition home or self-care (01) | DRG 885 ==
LOC: HO.ED 08-17 13:23 → HO.PGERI 08-17 14:17
PROVIDERS: Physician Assistant Medical; Admitting Provider Social Worker; Emergency Provider Emergency Medicine Emergency Medical Services; PCP Emergency Medicine; Visit Provider Social Worker
DX: F20.9 Schizophrenia, unspecified (principal); F02.818 Dementia in other diseases classified elsewhere, unspecified severity, with other behavioral disturbance; G30.9 Alzheimer's disease, unspecified; Z20.822 Contact with and (suspected) exposure to COVID-19; Z79.899 Other long term (current) drug therapy
CPT/HCPCS: 0241U; 36415; 70450; 71046; 80053; 80061; 80164; 80307; 81003; 82140; 82550; 82607; 82746; 83036; 83690; 83735; 84443; 84484; 85025; 93005; 99285; J2060; S9485

== ENCOUNTER → 2024-08-14 12:21 | Outpatient (BNV) | payer MEDICARE, MEDICAID, SELFPAY | PROVIDERS: Emergency Provider Emergency Medicine Emergency Medical Services; PCP Emergency Medicine; Visit Provider Social Worker | DX: G30.9 Alzheimer's disease, unspecified (principal); F02.818 Dementia in other diseases classified elsewhere, unspecified severity, with other behavioral disturbance; F20.9 Schizophrenia, unspecified | CPT/HCPCS: 90792; 99231; 99232; 99239; 99499 ==

== ENCOUNTER → 2024-08-14 12:39 | Outpatient (BNV) | payer MEDICARE, MEDICAID, SELFPAY | PROVIDERS: Emergency Provider Emergency Medicine Emergency Medical Services; PCP Emergency Medicine; Visit Provider Radiology Diagnostic Radiology | DX: I63.81 Other cerebral infarction due to occlusion or stenosis of small artery (principal); J84.9 Interstitial pulmonary disease, unspecified | CPT/HCPCS: 70450; 71046 ==

== ENCOUNTER → 2024-08-14 12:40 | Outpatient (BNV) | payer MEDICARE, MEDICAID, SELFPAY | PROVIDERS: Emergency Provider Emergency Medicine Emergency Medical Services; PCP Emergency Medicine; Visit Provider Internal Medicine | DX: R94.31 Abnormal electrocardiogram [ECG] [EKG] (principal) | CPT/HCPCS: 93010 ==

== ENCOUNTER → 2024-08-17 14:16 | Outpatient (BNV) | payer MEDICARE, MEDICAID, SELFPAY | PROVIDERS: Admitting Provider Social Worker; Emergency Provider Emergency Medicine Emergency Medical Services; PCP Emergency Medicine; Visit Provider Psychiatry & Neurology Psychiatry | DX: G30.9 Alzheimer's disease, unspecified (principal); F02.818 Dementia in other diseases classified elsewhere, unspecified severity, with other behavioral disturbance; F20.9 Schizophrenia, unspecified | CPT/HCPCS: 99232 ==